=== PATIENT | female | born 1970 | race Two or more races ===

== ENCOUNTER 2016-06-09 18:03 | Emergency (ER) | payer MEDICAID ==
[2016-06-09] MEDS ORDERED: ALBUTEROL NEB 2.5 MG/3 ML INH STA (18:32)
[2016-06-09] MEDS ORDERED: ALBUTEROL NEB 2.5 MG/3 ML INH ONE (19:15)
== END 2016-06-09 19:33 | disposition home or self-care (01) ==
DX: O99.519 Diseases of the respiratory system complicating pregnancy, unspecified trimester (principal); J06.9 Acute upper respiratory infection, unspecified; B97.89 Other viral agents as the cause of diseases classified elsewhere; O99.330 Smoking (tobacco) complicating pregnancy, unspecified trimester; Z3A.00 Weeks of gestation of pregnancy not specified
CPT/HCPCS: 71020; 87275; 87276; 94640; 94664; 99283; 99284; J7613

== ENCOUNTER 2019-11-18 17:45 | Emergency (ER) | payer MEDICAID ==
--- NOTE | 2019-11-18 18:24 | ED Physician Documentation ---
History of Present Illness - Stated complaint Stated Complaint: LT THUMB PX - Chief complaint Chief Complaint: General - History obtained from History obtained from: Patient - History of Present Illness Timing: Prior to arrival, How many weeks ago (3) - Additonal information Additional information: 49-year-old female presents the emergency department with chief complaint of left thumb pain for nearly 3 weeks. She reports that she has had a sharp stabbing pain for the entire left thumb that radiates down into the wrist for about 3 weeks she denies any trauma until yesterday when she jammed her left thumb while making a bed. she has had a persistent clicking in the joint and thumb sometimes locks on her. No history of previous injury she has never had h and surgery. Patient is right-hand dominant. 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: Ovarian cysts - Past Surgical History Past Surgical History: Yes /STAFF RADIOGRAPHER: section - Present Medications Home Medications: Ambulatory Orders Medication Instructions Recorded Confirmed Albuterol Sulf [Ventolin Hfa 2 puffs INH Q4HR PRN #1 inhaler 06/09/16 Inhaler] Amitriptyline [Elavil] 1 tab PO DAILY 06/09/16 06/09/16 Benzonatate [Tessalon Perle] 100 mg PO TID PRN #20 capsule 06/09/16 Gabapentin 100 mg PO TID 06/09/16 06/09/16 - Allergies Allergies/Adverse Reactions: Allergies Allergy/AdvReac Type Severity Reaction Status Date / Time Penicillins AdvReac Nausea Verified 11/18/19 17:58 - Social History Does the pt smoke?: Yes Smoking Status: Current every day smoker Does the pt drink ETOH?: No Does the pt have substance abuse?: No - Immunizations Immunizations are current?: Yes PD ED PE NORMAL - General General: Alert and oriented X 3, No acute distress, Well developed/nourished - HEENT HEENT: Atraumatic - Extremities Extremities: No deformity, Other (Clicking and locking at the PIP of the left thumb. No snuffbox tenderness. Reduced range of motion. No swelling.) Results - Vitals Vitals: Vital Signs - 24 hr 11/18/19 17:58 Temperature 36.8 C Heart Rate 100 Respiratory 20 Rate Blood Pressure 151/100 H O2 Saturation 98 Oxygen O2 Source Room air - Rads (name of study) left hand Radiology: Final report received (No acute intraosseous abnormality. No fracture or dislocation) PD MEDICAL DECISION MAKING - ED course Complexity details: reviewed results, re-evaluated patient, d/w patient ED course: 49-year-old female presented to the emergency department with chief complaint of left thumb pain for nearly 2 weeks. Worse after jamming it yesterday. She often notes that she has a clicking sensation in the PIP of the thumb and it will often remain in the locked position. - X-rays negative for acute fracture dislocation. - Given that the thumb often clicks and locks in place at the PIP I am very suspicious for Trigger thumb. - X-ray is not consistent with ulnar collateral ligament rupture. Doubt gamekeeper's thumb. She has no swelling or erythema therefore I doubt an infectious etiology. - Patient was given a splint to help immobilize the thumb which has reduce the pain. - Recommend close follow-up with hand surgery for evaluation of trigger thumb.Emergent return precautions discussed Departure - Departure Disposition: 01 Home, Self Care Clinical Impression: Thumb pain Qualifiers: Laterality: left Qualified Code(s): M79.645 - Pain in left finger(s) Condition: Stable Instructions: Trigger Finger Comments: uRth I hope that your thumb feels better soon. Based on your exam I suspect that you have a trigger thumb. Often this needs to be seen in conjunction with a hand specialist who may recommend surgery to treat the tendon that is affected The x-ray of your hand was normal today. Continue to wear the splint as needed for comfort. If you have worsening pain fevers thumb redness or red streaking return to the emergency department.
--- NOTE | 2019-11-18 19:20 | XRAY Report ---
PROCEDURE: Hand 3 View LT INDICATIONS: left thumb pain TECHNIQUE: 3 views of the hand(s) acquired. COMPARISON: None FINDINGS: Bones: No fractures or dislocations. No suspicious bony lesions. Soft tissues: No suspicious soft tissue calcifications. IMPRESSION: No fractures. Reviewed by: Tanya Zhang MD on 11/18/2019 7:19 PM PDT Approved by: Tanya Zhang MD on 11/18/2019 7:19 PM PDT Station ID: [id number]
[2019-11-18 20:02] VITALS: BP 131/99
== END 2019-11-18 20:06 | disposition home or self-care (01) ==
LOC: ED 17:45
DX: M79.645 Pain in left finger(s) (principal); I10 Essential (primary) hypertension; F17.200 Nicotine dependence, unspecified, uncomplicated
CPT/HCPCS: 99283

== ENCOUNTER 2020-12-13 20:04 | Inpatient (IN) | payer MEDICAID ==
[2020-12-13] MEDS ORDERED: HYDROmorphone 1 MG/ML CARPUJECT IVP STA (20:43)
[2020-12-13] MEDS ORDERED: VANCOMYCIN INJ 2 GM in SODIUM CHLORIDE 0.9% 500 ML IV STA (20:43)
[2020-12-13] MEDS ORDERED: CLINDAMYCIN 900 MG/50 ML 50 ML IV ONE (20:43)
--- NOTE | 2020-12-13 20:43 | ED Physician Documentation ---
History of Present Illness - Stated complaint Stated Complaint: RT REED RASH /CHILLS - Chief complaint Chief Complaint: Ext Problem - History obtained from History obtained from: Patient - History of Present Illness Timing: How many days ago (3) Pain level max: 10 Pain level now: 10 - Additonal information Additional information: Patient is a 50-year-old female who presents to the emergency department with redness, swelling and pain to the right lower leg for the past 3 days. Fevers of 102 at home. Body aches and chills. Nothing makes it better or worse. She states that she attempted to drain the redness with a needle at home. Nothing came out. Has a history of rheumatoid arthritis. 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: section - Present Medications Home Medications: Ambulatory Orders Medication Instructions Recorded Confirmed Albuterol Sulf [Ventolin Hfa 2 puffs INH Q4HR PRN #1 inhaler 06/09/16 Inhaler] Amitriptyline [Elavil] 1 tab PO DAILY 06/09/16 06/09/16 Benzonatate [Tessalon Perle] 100 mg PO TID PRN #20 capsule 06/09/16 Gabapentin 100 mg PO TID 06/09/16 06/09/16 - Allergies Allergies/Adverse Reactions: Allergies Allergy/AdvReac Type Severity Reaction Status Date / Time Penicillins AdvReac Nausea Verified 12/13/20 20:06 - Social History Does the pt smoke?: Yes Smoking Status: Current every day smoker Does the pt drink ETOH?: No Does the pt have substance abuse?: No - Immunizations Immunizations are current?: Yes - POLST Patient has POLST: No PD ED PE NORMAL - Vitals Vital signs reviewed: Yes - General General: Alert and oriented X 3, No acute distress, Well developed/nourished, Other (Morbidly obese female) - HEENT HEENT: Moist mucous membranes, Pharynx benign - Neck Neck: Supple, no meningeal sign - Cardiac Cardiac: RRR, Strong equal pulses - Respiratory Respiratory: No respiratory distress, Clear bilaterally - Abdomen Abdomen: Soft, Non tender, Non distended - Derm Derm: Warm and dry - Extremities Extremities: Other (Diffuse erythema from the knee down to the ankle on the right lower extremity, anterior aspect of the calf. The area is approximately 12 x 18 cm. No fluctuance. No drainable abscess) - Neuro Neuro: Alert and oriented X 3 Results - Vitals Vitals: Vital Signs - 24 hr 12/13/20 20:06 Temperature 37.6 C Heart Rate 122 H Respiratory 18 Rate Blood Pressure 149/91 H O2 Saturation 98 Oxygen O2 Source Room air - Labs Labs: Laboratory Tests 12/13/20 12/13/20 12/13/20 20:51 20:51 20:51 WBC 22.9 H RBC 4.48 Hgb 12.7 Hct 37.2 MCV 83.0 MCH 28.3 MCHC 34.1 RDW 12.4 Plt Count 407 MPV 9.8 Neut # (Auto) 18.6 H Lymph # (Auto) 1.8 [place]iscoe # (Auto) 2.2 H Eos # (Auto) 0.1 Baso # (Auto) 0.1 Absolute Nucleated RBC 0.00 Band Neuts % (Manual) Not Reportable Abnorm Lymph % (Manual) Not Reportable Nucleated RBC % 0.0 Neutrophils # (Manual) Not Reportable Lymphocytes # (Manual) Not Reportable Monocytes # (Manual) Not Reportable Eosinophils # (Manual) Not Reportable Basophils # (Manual) Not Reportable Differential Comment MANUAL=AUTO DIFF Manual Slide Review Indicated WBC Morphology NORMAL APPEARANCE Platelet Estimate NORMAL (130-450,000) Platelet Morphology NORMAL APPEARANCE RBC Morph Micro Appear NORMAL APPEARANCE PT 14.8 H INR 1.4 H APTT 27.0 Sodium 134 L Potassium 3.7 Chloride 97 L Carbon Dioxide 25 Anion Gap 12.0 BUN 10 Creatinine 0.5 Estimated GFR (MDRD) 131 Glucose 113 H Lactic Acid Calcium 8.9 Total Bilirubin 0.8 AST 24 ALT 51 Alkaline Phosphatase 130 H Total Protein 7.6 Albumin 3.2 Globulin 4.4 H Albumin/Globulin Ratio 0.7 L Lipase 17 L Urine Color Urine Clarity Urine pH Ur Specific [place] Urine Protein Urine Glucose (UA) Urine Ketones Urine Occult Blood Urine Nitrite Urine Bilirubin Urine Urobilinogen Ur Leukocyte Esterase Urine RBC Urine WBC Ur Squamous Epith Cells Urine Bacteria Ur Microscopic Review Urine Culture Comments 12/13/20 12/13/20 20:51 21:21 WBC RBC Hgb Hct MCV MCH MCHC RDW Plt Count MPV Neut # (Auto) Lymph # (Auto) [place] # (Auto) Eos # (Auto) Baso # (Auto) Absolute Nucleated RBC Band Neuts % (Manual) Abnorm Lymph % (Manual) Nucleated RBC % Neutrophils # (Manual) Lymphocytes # (Manual) Monocytes # (Manual) Eosinophils # (Manual) Basophils # (Manual) Differential Comment Manual Slide Review WBC Morphology Platelet Estimate Platelet Morphology RBC Morph Micro Appear PT INR APTT Sodium Potassium Chloride Carbon Dioxide Anion Gap BUN Creatinine Estimated GFR (MDRD) Glucose Lactic Acid 0.9 Calcium Total Bilirubin AST ALT Alkaline Phosphatase Total Protein Albumin Globulin Albumin/Globulin Ratio Lipase Urine Color YELLOW Urine Clarity SL. CLOUDY Urine pH 7.0 Ur Specific [place] 1.015 Urine Protein NEGATIVE Urine Glucose (UA) NEGATIVE Urine Ketones >=80 H Urine Occult Blood TRACE-INTA Urine Nitrite POSITIVE H Urine Bilirubin NEGATIVE Urine Urobilinogen 4 H Ur Leukocyte Esterase NEGATIVE Urine RBC 0-5 Urine WBC 4-5 Ur Squamous Epith Cells FEW Squamous Urine Bacteria Many H Ur Microscopic Review INDICATED Urine Culture Comments INDICATED PD MEDICAL DECISION MAKING - ED course Complexity details: reviewed results, re-evaluated patient, considered differential, d/w patient, d/w center lead consultant ED course: Patient with significant cellulitis of the right lower extremity. Fever at home. Chills, tachycardia. Consistent with SIRS. Given IV fluids and IV antibiotics. Blood cultures drawn. We will admit for IV antibiotics. Discussed the case with Dr. Wheeler, hospitalist who accepts This document was made in part using voice recognition software. While efforts are made to proofread this document, sound alike and grammatical errors may occur. Departure - Departure Disposition: ED Place in Observation Clinical Impression: SIRS (systemic inflammatory response syndrome) Cellulitis Qualifiers: Site of cellulitis: extremity Site of cellulitis of extremity: lower extremity Laterality: right Qualified Code(s): L03.115 - Cellulitis of right lower limb Condition: Stable
[2020-12-13 20:56] LABS: BASOPHILS # (AUTO) 0.1 10^3/uL (0.0-0.1); BASOPHILS % (AUTO) 0.3 %; EOSINOPHILS # (AUTO) 0.1 10^3/uL (0.0-0.7); EOSINOPHILS % (AUTO) 0.2 %; HCT - HEMATOCRIT 37.2 % (37.0-47.0); HGB - HEMOGLOBIN 12.7 g/dL (12.0-16.0); LYMPHOCYTES # (AUTO) 1.8 10^3/uL (1.5-3.5); LYMPHOCYTES % (AUTO) 7.9 %; MEAN CORPUSCULAR HEMOGLOBIN 28.3 pg (27.0-31.0); MEAN CORPUSCULAR HGB CONC 34.1 g/dL (32.0-36.0); MEAN PLATELET VOLUME 9.8 fL (7.9-10.8); MONOCYTES # (AUTO) 2.2 10^3/uL (0.0-1.0); MONOCYTES % (AUTO) 9.8 %; NEUTROPHILS # (AUTO) 18.6 10^3/uL (1.5-6.6); NEUTROPHILS % (AUTO) 81.1 %; PLT - PLATELET COUNT 407 10^3/uL (130-450); RED BLOOD COUNT 4.48 10^6/uL (4.20-5.40); RED CELL DISTRIBUTION WIDTH 12.4 % (12.0-15.0); WHITE BLOOD COUNT 22.9 x10^3/uL (4.8-10.8)
[2020-12-13] MEDS ORDERED: SODIUM CHLORIDE 0.9% 1,000 ML IV STA ×2 (20:57)
[2020-12-13 20:59] LABS: SLIDE REVIEW? Indicated
[2020-12-13 21:05] LABS: INR 1.4 (0.8-1.2); PT - PROTHROMBIN TIME 14.8 secs (9.9-12.6)
[2020-12-13 21:10] LABS: ALBUMIN 3.2 g/dL (3.2-5.5); ALBUMIN/GLOBULIN RATIO 0.7 (1.0-2.2); BILIRUBIN,TOTAL 0.8 mg/dL (0.2-1.0); CALCIUM 8.9 mg/dL (8.5-10.3); CREATININE 0.5 mg/dL (0.4-1.0); POTASSIUM 3.7 mmol/L (3.5-5.0); TOTAL PROTEIN 7.6 g/dL (6.7-8.2)
[2020-12-13] MEDS ORDERED: VANCOMYCIN 1 GM VIAL ONE (21:15)
[2020-12-13 21:23] LABS: PLATELET ESTIMATE, MANUAL NORMAL (130-450,000) (NORMAL); PLATELET MORPHOLOGY NORMAL APPEARANCE (NORMAL); RBC MORPHOLOGY (MULTIPLE) NORMAL APPEARANCE (NORMAL); WBC MORPHOLOGY (MULTIPLE) NORMAL APPEARANCE (NORMAL)
[2020-12-13 21:24] LABS: DIFFERENTIAL COMMENT MANUAL=AUTO DIFF
[2020-12-13] MEDS ORDERED: ONDANSETRON ODT 4 MG TABLET TL PRN (21:39)
[2020-12-13 21:43] LABS: BILIRUBIN,URINE NEGATIVE (NEGATIVE); GLUCOSE, URINE (UA) NEGATIVE (NEGATIVE); KETONES,URINE (UA) >=80 mg/dL (NEGATIVE); LEUKOCYTE ESTERASE, URINE NEGATIVE (NEGATIVE); NITRITE,URINE POSITIVE (NEGATIVE); OCCULT BLOOD,URINE TRACE-INTA (NEGATIVE); PROTEIN,URINE NEGATIVE (NEGATIVE); UROBILINOGEN,URINE 4 E.U./dL (NORMAL)
[2020-12-13 21:44] LABS: CLARITY,URINE SL. CLOUDY (CLEAR)
[2020-12-13 21:50] LABS: BACTERIA,URINE Many /HPF (None Seen); RBC,URINE 0-5 /HPF (0-5); SQUAMOUS EPITHELIAL CELL,UR FEW Squamous (<= Few)
[2020-12-13 23:01] LABS: B. PARAPERTUSSIS- RESP PCR PAN NOT DETECTED; B. PERTUSSIS- RESP PCR PANEL NOT DETECTED; C. PNEUMONIAE- RESP PCR PANEL NOT DETECTED; CORONAVIRUS 229E-RESP PCR NOT DETECTED; CORONAVIRUS HKU1-RESP PCR NOT DETECTED; CORONAVIRUS NL63-RESP PCR NOT DETECTED; CORONAVIRUS OC43-RESP PCR NOT DETECTED; HUMAN METAPNEUMOVIRUS NOT DETECTED; INFLUENZA A- RESP PCR PANEL NOT DETECTED; INFLUENZA B - RESP PCR PANEL NOT DETECTED; M. PNEUMONIAE- RESP PCR PANEL NOT DETECTED; PARAINFLUENZA VIRUS 1 NOT DETECTED; PARAINFLUENZA VIRUS 2 NOT DETECTED; PARAINFLUENZA VIRUS 3 NOT DETECTED; PARAINFLUENZA VIRUS 4 NOT DETECTED; RHINOVIRUS/ENTEROVIRUS NOT DETECTED; RSV- RESP PCR PANEL NOT DETECTED; SARS-CoV-2 -RESP PCR PANEL NOT DETECTED
--- NOTE | 2020-12-13 23:23 | HISTORY & PHYSICAL EXAMINATION ---
Chief Complaint - Chief Complaint Chief Complaint: Right leg pain, redness, and swelling History of Present Illness - Admitted From Admitted From:: ED - History Obtained From Records Reviewed: ED History obtained from: Patient Exam Limitations: None - History of Present Illness HPI Comment/Other: Patient is a 50-year-old female with a past medical history of fibromyalgia, spinal stenosis, DJD of the spine, and early signs of rheumatoid arthritis who presents the emergency department with 4-day history of right leg redness, swelling, pain.She states that she was [place] [facility] a few days ago, and about 1 day after being [place] [facility] after standing in the water she noticed some swelling and a pustule on the anterior aspect of her right lower leg. Swelling worsened rather quickly and has been relatively stable for the past 2 days but the pain has been getting worse. Not relieved with anything other than mild improvement with elevation. In the ED she had tachycardia, mildly soft BP, and leukocytosis of 22.9. Hospital medicine was consulted for IV abx to treat cellulitis. 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 - Substance History Use: Uses substance without health or social issues: NONE Abuse: Recurrent use of substance despite neg consequences: NONE Dependence: Experiences withdrawal or developed tolerances: NONE - POLST Patient has POLST: No Meds/Allgy - Home Medications Home Medications: Ambulatory Orders Medication Instructions Recorded Confirmed Albuterol Sulf [Ventolin Hfa 2 puffs INH Q4HR PRN #1 inhaler 06/09/16 Inhaler] Amitriptyline [Elavil] 1 tab PO DAILY 06/09/16 06/09/16 Benzonatate [Tessalon Perle] 100 mg PO TID PRN #20 capsule 06/09/16 Gabapentin 100 mg PO TID 06/09/16 06/09/16 - Allergies Allergies/Adverse Reactions: Allergies Allergy/AdvReac Type Severity Reaction Status Date / Time Penicillins AdvReac Nausea Verified 12/13/20 20:06 Review of Systems - Constitutional Constitutional: reports: Fever, Chills - Cardiovascular Cariovascular: denies: Irregular heart rate, Chest pain - Gastrointestinal Gastrointestinal: denies: Change in bowel habits, Nausea, Vomiting - Musculoskeletal Musculoskeletal: reports: Back pain, Joint pain - All Other Systems All Other Systems: reports: Reviewed and negative Prior Level of Functionality: . Taking time off work to spend time with her kids Exam - Vital Signs Reviewed Vital Signs: Yes Vital Signs: Vital Signs x48h Temp Pulse Pulse Resp BP BP Pulse Ox 12/13/20 23:05 37.3 C 12/13/20 22:34 112 H 16 149/66 H 98 12/13/20 20:06 37.6 C 122 H 18 149/91 H 98 - Physical Exam General Appearance: positive: No acute distress Eyes Bilateral: positive: Normal inspection ENT: positive: ENT inspection nml Neck: positive: Nml inspection Respiratory: positive: Chest non-tender, No respiratory distress Cardiovascular: positive: Regular rate & rhythm, No murmur, No gallop Peripheral Pulses: positive: 2+ Abdomen: positive: Non-tender, No organomegaly, Nml bowel sounds, No distention Rectal: positive: Non-tender Back: positive: Nml inspection Skin: positive: Other (Right lower leg, anterior aspect, remarkable for erythema with small tiny single pustule. There is a convex city deformity to the anterior aspect of the lower leg that the patient states is chronic and not related to the current infection.) Extremities: positive: Other (See above, redness, warmth to touch, tenderness to palpation of the right lower leg) Neurologic/Psychiatric: positive: Oriented x3 Sepsis Event Note (H) - Evaluation Current Stage of Sepsis: Ruled out Conclusion/Plan - Problem List (1) Cellulitis Conclusion/Plan: Right lower leg cellulitis probably anaerobic given exposure to [facility] [place] recently Continue clindamycin and vancomycin started in ED Check MRSA nasal swab and potentially discontinue vancomycin if improved tomorrow and swab is negative Possible DC on oral antibiotics in 1 to 2 days pending clinical course Qualifiers: Site of cellulitis: extremity Site of cellulitis of extremity: lower extr emity Laterality: right Qualified Code(s): L03.115 - Cellulitis of right lower limb (2) Fibromyalgia Conclusion/Plan: Resume home medications (3) Hypertension Conclusion/Plan: Resume home medications (4) SIRS (systemic inflammatory response syndrome) Conclusion/Plan: Mild tachycardia persists but blood pressure has recovered and lactic acid is negative. Continue antibiotic treatment as above - Lab Results Lab results reviewed: Yes Bayron Bones: 12/13/20 20:51 12/13/20 20:51 Core Measures - Anticipated LOS I expect patient to be DC'd or transferred within 96 hours.: Yes - DVT/VTE - Prophylaxis VTE/DVT Device ordered at admit?: Yes
[2020-12-13] MEDS: oxyCODONE 5 MG TABLET PO PRN (23:27)
[2020-12-13] MEDS: ACETAMINOPHEN 325 MG TABLET PO PRN (23:27)
[2020-12-13] MEDS ORDERED: GABAPENTIN 100 MG CAPSULE PO SCH (23:45)
[2020-12-13] MEDS: SODIUM CHLORIDE 0.9% 1,000 ML IV SCH (23:47)
[2020-12-13] MEDS: SODIUM CHLORIDE FLUSH 0.9% 10 ML SYRINGE IVP SCH (23:50)
[2020-12-14] MEDS: IBUPROFEN 600 MG TABLET PO PRN ×3 (03:42→15:31)
[2020-12-14] MEDS: oxyCODONE 5 MG TABLET PO PRN ×5 (03:42→21:17)
[2020-12-14 05:32] LABS: MEAN CORPUSCULAR HEMOGLOBIN 27.5 pg (27.0-31.0); MEAN CORPUSCULAR HGB CONC 32.4 g/dL (32.0-36.0); MEAN CORPUSCULAR VOLUME 84.7 fL (81.0-99.0); MEAN PLATELET VOLUME 10.1 fL (7.9-10.8); RED BLOOD COUNT 4.37 10^6/uL (4.20-5.40); RED CELL DISTRIBUTION WIDTH 12.7 % (12.0-15.0); WHITE BLOOD COUNT 23.2 x10^3/uL (4.8-10.8)
[2020-12-14 05:43] LABS: CALCIUM 8.6 mg/dL (8.5-10.3); CREATININE 0.4 mg/dL (0.4-1.0); POTASSIUM 3.3 mmol/L (3.5-5.0)
[2020-12-14] MEDS: CLINDAMYCIN 600 MG/50 ML 50 ML IV SCH ×3 (05:52→23:19)
[2020-12-14] MEDS: SODIUM CHLORIDE 0.9% 1,000 ML IV SCH ×3 (06:01→18:08)
[2020-12-14] MEDS: ACETAMINOPHEN 325 MG TABLET PO PRN ×3 (08:05→17:06)
[2020-12-14] MEDS: GABAPENTIN 100 MG CAPSULE PO SCH ×2 (08:05→15:54)
[2020-12-14] MEDS: ENOXAPARIN 40 MG/0.4 ML SYRINGE SUBQ SCH (08:08)
[2020-12-14] MEDS ORDERED: POTASSIUM CHLORIDE 20 MEQ TABLET PO ONE (08:15)
[2020-12-14] MEDS ORDERED: AMITRIPTYLINE 10 MG TABLET PO SCH (09:00)
[2020-12-14] MEDS: SACCHAROMYCES BOULARDII 250 MG CAPSULE PO SCH ×2 (09:37→17:05)
[2020-12-14] MEDS: VANCOMYCIN INJ 1 GM, VANCOMYCIN INJ 500 MG in SODIUM CHLORIDE 0.9% 500 ML IV SCH ×2 (09:38→21:14)
[2020-12-14] MEDS: SODIUM CHLORIDE FLUSH 0.9% 10 ML SYRINGE IVP SCH ×2 (09:43→17:05)
[2020-12-14] MEDS ORDERED: IOVERSOL 320 100 ML VIAL IVP ONE ×2 (10:51→16:27)
[2020-12-14 12:21] LABS: HCG,QUALITATIVE BLOOD NEGATIVE
--- NOTE | 2020-12-14 12:51 | PHARMACY PROGRESS NOTE ---
- Best Possible Medication History Admit Date and Time: 12/13/208 Processed by: Pharmacy Medication History completed: Yes Patient Interview: Completed Secondary Source(s): Pharmacy records, Insurance records As the person ultimately responsible for medication therapy, providers are able to order a medication from an existing home medication list in [facility] via the "Reconcile Routine" prior to Confirmation of that medication by shipping support. Such practice is discouraged except when the physician, in their clinical judgment, deems that a medical need exists for a medication without regard to previous use.
--- NOTE | 2020-12-14 14:31 | PHARMACY PROGRESS NOTE ---
- Therapy Status Vancomycin regimen day #: 2 Therapy status: Awaiting steady state Basis for treatment: Empirical Treatment indication: Cellulitis Trough goal: 15-20 Concurrent antibiotics: Clindamycin - DANNA Risk Risk level for Acute Kidney Injury: Moderate Acute Kidney Injury risk factors: Wt >100kg or BMI >40, IV contrast within 72 hrs, Goal trough >15 - Monitoring and Recommendation Clinical response to treatment: I&O Previous 24 hours 12/12/20 12/13/20 12/14/20 23:59 23:59 23:59 Intake Total 1415 3775 Output Total 850 Balance 1415 2925 Lab Results 12/14/20 12/13/20 05:00 20:51 BUN 10 10 Creatinine 0.4 0.5 Estimated GFR (MDRD) 169 131 Cultures 12/14/20 08:15 Leg - Right Wound Culture - Preliminary 12/13/20 21:21 Urine,Clean Catch Urine Culture - Preliminary Monitoring plan: Daily serum creatinine, Suggest ongoing fluid replacement Next trough due prior to maintenance dose #: 5 Next trough due (date/time): 12/16/20 0830 Areas for additional monitoring: IV to PO when appropriate, Therapy de- escalation based on culture results, Acute Kidney Injury Pharmacy recommendation: Continue current regime
--- NOTE | 2020-12-14 16:15 | CT Report ---
PROCEDURE: LOWER EXTREMITY W - RT INDICATIONS: leg pain, abscess TECHNIQUE: CT of the right lower leg obtained in axial plane with coronal and sagittal reformatted. COMPARISON: None. FINDINGS: Bones: No fracture or dislocation. No bony erosion or periosteal reaction. Soft tissues: There is a complex subcutaneous fluid collection in the anterior medial mass effect of the right lower leg measuring 6.7 cm AP, 8.4 cm transverse and 6.4 cm cephalocaudal. There is subtle peripheral enhancement along the fluid collection, suspicious for abscess. There is soft tissue attending and skin thickening in the right lower leg consistent with cellulitis. IMPRESSION: 1. A 6.7 x 8.4 x 6.9 cm subcutaneous fluid collection in the anterior aspect of the right lower leg d emonstrates subtle peripheral enhancement, compatible with an abscess. 2. Soft tissue stranding and skin thickening of the right lower leg consistent with cellulitis. Reviewed by: Reed Dent MD on 12/14/2020 4:13 PM PDT Approved by: Reed Dent MD on 12/14/2020 4:13 PM PDT Station ID: [id number]
--- NOTE | 2020-12-14 16:52 | PROVIDER PROGRESS NOTE ---
Assessment/Plan - Problem List (1) Abscess Assessment/Plan: CT reveals big size of abscess on the frontier of right lower extremity. Consult with the surgeon, n.p.o. after midnight, plan to have I/D on tomorrow morning. Continue antibiotics, intravenous IV fluids, pain control (2) Cellulitis Improved significantly, Erythema is reduced, patient reported pain is better Controlled. But the WBC has slightly elevated. We will continue antibiotics,Follow-up blood culture and wound culture. (3) Fibromyalgia Conclusion/Plan: stable, Resume home medications (4) Hypertension Conclusion/Plan: stable, Resume home medications, HCTZ (5) SIRS (systemic inflammatory response syndrome) Conclusion/Plan: improved. Tachycardia is resolved. blood pressure is good control and lactic acid is negative. Continue antibiotic treatment And intravenous IV fluids - Current Meds Current Meds: Current Medications Generic Name Dose Route Start Last Admin Trade Name Freq PRN Reason Stop Dose Admin Acetaminophen 650 mg 12/13/20 21:39 12/14/20 12:31 Acetaminophen 325 Mg Tablet PO 650 mg Q4HR PRN Administration Pain 1 to 4 Enoxaparin Sodium 40 mg 12/14/20 09:00 12/14/20 08:08 Enoxaparin 40 Mg/0.4 Ml Syringe SUBQ 40 mg DAILY DANISH Administration Gabapentin 100 mg 12/14/20 08:30 12/14/20 15:54 Gabapentin 100 Mg Capsule PO 100 mg Q8H DANISH Administration Clindamycin Phosphate 50 mls @ 100 mls/hr 12/14/20 06:00 12/14/20 15:20 Cleocin 600 Mg/50 Ml IV Infused Q8HR DANISH Infusion Vancomycin HCl 1 gm/ 500 mls @ 250 mls/hr 12/14/20 09:00 12/14/20 11:10 Vancomycin HCl 500 mg/ Sodium IV Infused Chloride Q12H DANISH Infusion Sodium Chloride 1,000 mls @ 100 mls/hr 12/14/20 08:15 12/14/20 09:37 Normal Saline 0.9% IV 12/15/20 04:14 100 mls/hr .Q10H DANISH Administration Ibuprofen 600 mg 12/13/20 21:39 12/14/20 15:31 Ibuprofen 600 Mg Tablet PO 600 mg Q6HR PRN Administration Pain 1 to 4 Oxycodone HCl 5 mg 12/13/20 21:39 12/14/20 12:26 Oxycodone 5 Mg Tablet PO 5 mg Q4HR PRN Administration Pain 5 to 7 Saccharomyces Boulardii 500 mg 12/14/20 08:24 12/14/20 09:37 Saccharomyces Boulardii 250 Mg Capsule PO 500 mg BIDWM DANISH Administration Sodium Chloride 10 ml 12/14/20 01:00 12/14/20 09:43 Sodium Chloride Flush 0.9% 10 Ml Syringe IVP Not Given 0100,0900,1700 DANISH - Lab Result Fish Bone Diagrams: 12/14/20 05:00 12/14/20 05:00 - Additional Planning My Orders: My Active Orders 12/14/20 08:15 Sodium Chloride 0.9% [Normal Saline 0.9%] 1,000 ml IV 100 mls/hr 12/14/20 08:24 Saccharomyces Boulardii [Florastor] 500 mg PO BIDWM 12/15/20 00:01 NPO except Meds [DIET] Subjective - Subjective Patient Reports: Feeling Better Objective Vital Signs: Vital Signs - 24 hr 12/13/20 12/13/20 12/13/20 20:06 22:34 23:05 Temperature 37.6 C 37.3 C Heart Rate 122 H Heart Rate [ 112 H Brachial] Respiratory 18 16 Rate Blood Pressure 149/91 H Blood Pressure 149/66 H [Left Brachial artery] O2 Saturation 98 98 12/13/20 12/14/20 12/14/20 23:49 05:05 07:48 Temperature 37.5 C 36.8 C 36.6 C Heart Rate Heart Rate [ 112 H 92 89 Brachial] Respiratory 18 18 16 Rate Blood Pressure Blood Pressure 145/88 H 138/75 H 125/68 [Left Brachial artery] O2 Saturation 100 97 98 12/14/20 12/14/20 12:13 16:16 Temperature 36.6 C 36.5 C Heart Rate Heart Rate [ 94 95 Brachial] Respiratory 18 16 Rate Blood Pressure Blood Pressure 135/65 H 146/73 H [Left Brachial artery] O2 Saturation 99 99 Oxygen O2 Source Room air I&O (Last 24 Hrs): Intake and Output Totals x24h 12/12/20 12/13/20 12/14/20 23:59 23:59 23:59 Intake Total 1415 3825 Output Total 850 Balance 1415 2975 General: Alert, Oriented x3, Cooperative, No acute distress HEENT: Atraumatic, PERRLA Neck: Supple Lymphatic: no adenopathy Neuro: Alert, Non Focal, Oriented Times 3 Cardiovascular: Regular rate, Normal S1, Normal S2 Respiratory: Chest non-tender, No respiratory distress Abdomen: Normal bowel sounds, Soft, No tenderness Extremities: Normal pulses Comments/Notes: Erythema and warmth at right lower extremity, pt has drainage site on the frontier of right lower extremity where show tenderness, possible abscess at there. - Results Results: Laboratory Results WBC 23.2 x10^3/uL (4.8-10.8) H 12/14/20 05:00 RBC 4.37 10^6/uL (4.20-5.40) 12/14/20 05:00 Hgb 12.0 g/dL (12.0-16.0) 12/14/20 05:00 Hct 37.0 % (37.0-47.0) 12/14/20 05:00 MCV 84.7 fL (81.0-99.0) 12/14/20 05:00 MCH 27.5 pg (27.0-31.0) 12/14/20 05:00 MCHC 32.4 g/dL (32.0-36.0) 12/14/20 05:00 RDW 12.7 % (12.0-15.0) 12/14/20 05:00 Plt Count 409 10^3/uL (130-450) 12/14/20 05:00 MPV 10.1 fL (7.9-10.8) 12/14/20 05:00 Neut # (Auto) 18.6 10^3/uL (1.5-6.6) H 12/13/20 20:51 Lymph # (Auto) 1.8 10^3/uL (1.5-3.5) 12/13/20 20:51 [place] # (Auto) 2.2 10^3/uL (0.0-1.0) H 12/13/20 20:51 Eos # (Auto) 0.1 10^3/uL (0.0-0.7) 12/13/20 20:51 Baso # (Auto) 0.1 10^3/uL (0.0-0.1) 12/13/20 20:51 Absolute Nucleated RBC 0.00 x10^3/uL 12/13/20 20:51 Band Neuts % (Manual) Not Reportable 12/13/20 20:51 Abnorm Lymph % (Manual) Not Reportable 12/13/20 20:51 Nucleated RBC % 0.0 /100WBC 12/13/20 20:51 Neutrophils # (Manual) Not Reportable 12/13/20 20:51 Lymphocytes # (Manual) Not Reportable 12/13/20 20:51 Monocytes # (Manual) Not Reportable 12/13/20 20:51 Eosinophils # (Manual) Not Reportable 12/13/20 20:51 Basophils # (Manual) Not Reportable 12/13/20 20:51 Differential Comment MANUAL=AUTO DIFF 12/13/20 20:51 Manual Slide Review Indicated 12/13/20 20:51 WBC Morphology NORMAL APPEARANCE (NORMAL) 12/13/20 20:51 Platelet Estimate NORMAL (130-450,000) (NORMAL) 12/13/20 20:51 Platelet Morphology NORMAL APPEARANCE (NORMAL) 12/13/20 20:51 RBC Morph Micro Appear NORMAL APPEARANCE (NORMAL) 12/13/20 20:51 PT 14.8 secs (9.9-12.6) H 12/13/20 20:51 INR 1.4 (0.8-1.2) H 12/13/20 20:51 APTT 27.0 secs (24.9-33.3) 12/13/20 20:51 Sodium 136 mmol/L (135-145) 12/14/20 05:00 Potassium 3.3 mmol/L (3.5-5.0) L 12/14/20 05:00 Chloride 101 mmol/L (101-111) 12/14/20 05:00 Carbon Dioxide 27 mmol/L (21-32) 12/14/20 05:00 Anion Gap 8.0 (6-13) 12/14/20 05:00 BUN 10 mg/dL (6-20) 12/14/20 05:00 Creatinine 0.4 mg/dL (0.4-1.0) 12/14/20 05:00 Estimated GFR (MDRD) 169 (>89) 12/14/20 05:00 Glucose 111 mg/dL (70-100) H 12/14/20 05:00 Lactic Acid 0.9 mmol/L (0.5-2.2) 12/13/20 20:51 Calcium 8.6 mg/dL (8.5-10.3) 12/14/20 05:00 Total Bilirubin 0.8 mg/dL (0.2-1.0) 12/13/20 20:51 AST 24 IU/L (10-42) 12/13/20 20:51 ALT 51 IU/L (10-60) 12/13/20 20:51 Alkaline Phosphatase 130 IU/L (42-121) H 12/13/20 20:51 Total Protein 7.6 g/dL (6.7-8.2) 12/13/20 20:51 Albumin 3.2 g/dL (3.2-5.5) 12/13/20 20:51 Globulin 4.4 g/dL (2.1-4.2) H 12/13/20 20:51 Albumin/Globulin Ratio 0.7 (1.0-2.2) L 12/13/20 20:51 Lipase 17 U/L (22-51) L 12/13/20 20:51 Serum HCG, Qual NEGATIVE 12/14/20 11:45 Urine Color YELLOW 12/13/20 21:21 Urine Clarity SL. CLOUDY (CLEAR) 12/13/20 21:21 Urine pH 7.0 PH (5.0-7.5) 12/13/20 21:21 Ur Specific [place] 1.015 (1.002-1.030) 12/13/20 21:21 Urine Protein NEGATIVE mg/dL (NEGATIVE) 12/13/20 21:21 Urine Glucose (UA) NEGATIVE mg/dL (NEGATIVE) 12/13/20 21:21 Urine Ketones >=80 mg/dL (NEGATIVE) H 12/13/20 21:21 Urine Occult Blood TRACE-INTA (NEGATIVE) 12/13/20 21:21 Urine Nitrite POSITIVE (NEGATIVE) H 12/13/20 21:21 Urine Bilirubin NEGATIVE (NEGATIVE) 12/13/20 21:21 Urine Urobilinogen 4 E.U./dL (NORMAL) H 12/13/20 21:21 Ur Leukocyte Esterase NEGATIVE (NEGATIVE) 12/13/20 21:21 Urine RBC 0-5 /HPF (0-5) 12/13/20 21:21 Urine WBC 4-5 /HPF (0-5) 12/13/20 21:21 Ur Squamous Epith Cells FEW Squamous (<= Few) 12/13/20 21:21 Urine Bacteria Many /HPF (None Seen) H 12/13/20 21:21 Ur Microscopic Review INDICATED 12/13/20 21:21 Urine Culture Comments INDICATED 12/13/20 21:21 Nasal Adenovirus (PCR) NOT DETECTED 12/13/20 21:45 Nasal B. parapertussis DNA (PCR) NOT DETECTED 12/13/20 21:45 Nasal Coronavir 229E PCR NOT DETECTED 12/13/20 21:45 Nasal Coronavir HKU1 PCR NOT DETECTED 12/13/20 21:45 Nasal Coronavir NL63 PCR NOT DETECTED 12/13/20 21:45 Nasal Coronavir OC43 PCR NOT DETECTED 12/13/20 21:45 Nasal Enterovir/Rhinovir PCR NOT DETECTED 12/13/20 21:45 Nasal Influenza B PCR NOT DETECTED 12/13/20 21:45 Nasal Influenza A PCR NOT DETECTED 12/13/20 21:45 Nasal Parainfluen 1 PCR NOT DETECTED 12/13/20 21:45 Nasal Parainfluen 2 PCR NOT DETECTED 12/13/20 21:45 Nasal Parainfluen 3 PCR NOT DETECTED 12/13/20 21:45 Nasal Parainfluen 4 PCR NOT DETECTED 12/13/20 21:45 Nasal RSV (PCR) NOT DETECTED 12/13/20 21:45 Nasal Screen MRSA (PCR) NEGATIVE (NEGATIVE) 12/13/20 22:00 Nasal B.pertussis DNA PCR NOT DETECTED 12/13/20 21:45 Nasal C.pneumoniae (PCR) NOT DETECTED 12/13/20 21:45 [place] Human Metapneumo PCR NOT DETECTED 12/13/20 21:45 Nasal M.pneumoniae (PCR) NOT DETECTED 12/13/20 21:45 Nasal SARS-CoV-2 (PCR) NOT DETECTED 12/13/20 21:45 Sepsis Event Note (H) - Evaluation Current Stage of Sepsis: Ruled out ABX Reporting Has patient been on IV antibiotics over the past 48 hours?: Yes Current Medications - Current Medications Current Medications: Active Medications Acetaminophen (Acetaminophen 325 Mg Tablet) 650 mg PO Q4HR PRN PRN Reason: Pain 1 to 4 Last Admin: 12/14/20 12:31 Dose: 650 mg Documented by: Amitriptyline HCl (Amitriptyline 25 Mg Tablet) 12.5 mg PO QPM [facility] Enoxaparin Sodium (Enoxaparin 40 Mg/0.4 Ml Syringe) 40 mg SUBQ DAILY [facility] Last Admin: 12/14/20 08:08 Dose: 40 mg Documented by: Gabapentin (Gabapentin 100 Mg Capsule) 100 mg PO Q8H [facility] Last Admin: 12/14/20 15:54 Dose: 100 mg Documented by: Hydrochlorothiazide (Hydrochlorothiazide 25 Mg Tablet) 25 mg PO DAILY [facility] Clindamycin Phosphate (Cleocin 600 Mg/50 Ml) 50 mls @ 100 mls/hr IV Q8HR [facility] Last Infusion: 12/14/20 15:20 Dose: Infused Documented by: Vancomycin HCl 1 gm/Vancomycin HCl 500 mg/ Sodium Chloride 500 mls @ 250 mls/hr IV Q12H [facility] Last Infusion: 12/14/20 11:10 Dose: Infused Documented by: Sodium Chloride (Normal Saline 0.9%) 1,000 mls @ 100 mls/hr IV .Q10H [facility] Stop: 12/15/20 04:14 Last Admin: 12/14/20 09:37 Dose: 100 mls/hr Documented by: Ibuprofen (Ibuprofen 600 Mg Tablet) 600 mg PO Q6HR PRN PRN Reason: Pain 1 to 4 Last Admin: 12/14/20 15:31 Dose: 600 mg Documented by: Methocarbamol (Methocarbamol 500 Mg Tablet) 500 mg PO Q6H PRN PRN Reason: Muscle Spasms Morphine Sulfate (Morphine 2 Mg/Ml Carpuject) 2 mg IVP Q2HR PRN PRN Reason: PAIN Non-Formulary Medication (Amitriptyline Hcl [Amitriptyline Hcl]) 100 mg PO QPM [facility] Non-Formulary Medication (Gabapentin [Neurontin]) 600 mg PO BID [facility] Non-Formulary Medication (Gabapentin [Neurontin]) 800 mg PO BID [facility] Ondansetron HCl (Ondansetron Odt 4 Mg Tablet) 4 mg TL Q6HR PRN PRN Reason: Nausea / Vomiting Oxycodone HCl (Oxycodone 5 Mg Tablet) 5 mg PO Q4HR PRN PRN Reason: Pain 5 to 7 Last Admin: 12/14/20 12:26 Dose: 5 mg Documented by: Saccharomyces Boulardii (Saccharomyces Boulardii 250 Mg Capsule) 500 mg PO BIDWM [facility] Last Admin: 12/14/20 09:37 Dose: 500 mg Documented by: Sodium Chloride (Sodium Chloride Flush 0.9% 10 Ml Syringe) 10 ml IVP PRN PRN PRN Reason: NEEDED PER PROVIDER ORDERS Sodium Chloride (Sodium Chloride Flush 0.9% 10 Ml Syringe) 10 ml IVP 0100,0900,1700 [facility] Last Admin: 12/14/20 09:43 Dose: Not Given Documented by: Amitriptyline HCl 100 mg PO QPM 12/14/20 Gabapentin [Neurontin] 600 mg PO BID 12/14/20 Gabapentin [Neurontin] 800 mg PO BID 12/14/20 hydroCHLOROthiazide [Hydrodiuril] 25 mg PO DAILY 12/14/20 methocarbamoL [Robaxin] 500 mg PO Q6H PRN 12/14/20
[2020-12-14] MEDS: GABAPENTIN 300 MG CAPSULE PO SCH ×2 (18:08→21:58)
[2020-12-14] MEDS ORDERED: GABAPENTIN 800 MG PO SCH (21:00)
[2020-12-14] MEDS ORDERED: AMITRIPTYLINE 25 MG TABLET PO SCH (21:00)
[2020-12-14] MEDS: AMITRIPTYLINE 25 MG TABLET PO SCH (21:14)
[2020-12-14] MEDS: methocarbamoL 500 MG TABLET PO PRN (21:14)
[2020-12-15] MEDS: SODIUM CHLORIDE FLUSH 0.9% 10 ML SYRINGE IVP SCH ×3 (00:18→16:50)
[2020-12-15] MEDS: GABAPENTIN 100 MG CAPSULE PO SCH ×3 (00:19→16:45)
[2020-12-15] MEDS: oxyCODONE 5 MG TABLET PO PRN ×2 (01:51→05:48)
[2020-12-15 05:01] LABS: HCT - HEMATOCRIT 36.9 % (37.0-47.0); HGB - HEMOGLOBIN 11.9 g/dL (12.0-16.0); MEAN CORPUSCULAR HEMOGLOBIN 27.9 pg (27.0-31.0); MEAN CORPUSCULAR HGB CONC 32.2 g/dL (32.0-36.0); MEAN CORPUSCULAR VOLUME 86.6 fL (81.0-99.0); RED BLOOD COUNT 4.26 10^6/uL (4.20-5.40); RED CELL DISTRIBUTION WIDTH 12.7 % (12.0-15.0); WHITE BLOOD COUNT 15.8 x10^3/uL (4.8-10.8)
[2020-12-15 05:12] LABS: CALCIUM 8.4 mg/dL (8.5-10.3); CREATININE 0.4 mg/dL (0.4-1.0); POTASSIUM 3.5 mmol/L (3.5-5.0)
[2020-12-15] MEDS: GABAPENTIN 300 MG CAPSULE PO SCH ×3 (05:48→23:05)
[2020-12-15] MEDS: CLINDAMYCIN 600 MG/50 ML 50 ML IV SCH ×3 (05:48→23:14)
[2020-12-15] MEDS: ACETAMINOPHEN 325 MG TABLET PO PRN ×3 (05:48→17:42)
[2020-12-15] MEDS: SACCHAROMYCES BOULARDII 250 MG CAPSULE PO SCH ×2 (07:52→16:45)
[2020-12-15] MEDS: SODIUM CHLORIDE 0.9% 1,000 ML IV SCH ×2 (09:07→23:06)
[2020-12-15] MEDS: VANCOMYCIN INJ 1 GM, VANCOMYCIN INJ 500 MG in SODIUM CHLORIDE 0.9% 500 ML IV SCH ×2 (09:08→23:00)
[2020-12-15] MEDS: ENOXAPARIN 40 MG/0.4 ML SYRINGE SUBQ SCH (09:08)
[2020-12-15] MEDS: hydroCHLOROthiazide 25 MG TABLET PO SCH (09:27)
[2020-12-15] MEDS: MORPHINE 2 MG/ML CARPUJECT IVP PRN ×3 (09:27→17:41)
--- NOTE | 2020-12-15 10:57 | Ultrasound Report ---
PROCEDURE: Duplex Ext Veins Right INDICATIONS: pain, swelling, any clots/DVT? TECHNIQUE: Real-time imaging, as well as color and pulse Doppler interrogation, were performed of the lower extr emity deep veins from the inguinal ligament to the popliteal fossa. COMPARISON: None. FINDINGS: The deep veins are normally compressible, and free of intraluminal thrombus. Color and pu lse Doppler demonstrate normal phasic intraluminal flow. There is normal augmentation response to di stal compression maneuver. IMPRESSION: No DVT found right lower extremity. Reviewed by: Ermias Nava MD on 12/15/2020 10:55 AM PDT Approved by: Ermias Nava MD on 12/15/2020 10:55 AM PDT Station ID: [id number]
[2020-12-15] MEDS: methocarbamoL 500 MG TABLET PO PRN (11:29)
--- NOTE | 2020-12-15 14:29 | PROVIDER PROGRESS NOTE ---
Assessment/Plan - Problem List (1) Abscess Assessment/Plan: 12/15, surgeon plan to have I/D for pt, we will followup. US reveals no evidence to suggest to have DVT in right leg. We will continue intravenous antibiotics, patient WBC is down to 16 from 23. wound culture show staph Aureus. CT reveals big size of abscess on the frontier of right lower extremity. Consult with the surgeon, n.p.o. after midnight, plan to have I/D on tomorrow morning. Continue antibiotics, intravenous IV fluids, pain control (2) Cellulitis 12/15 Patient feel better, Pain is reduced. Erythema and swelling are reduced. Blood culture showed negative for bacteremia. WBC is down to 16 from 23 on yeste rday. Wound culture show positive staph aureus. We will continue intravenous antibiotics, Continue probiotics. Improved significantly, Erythema is reduced, patient reported pain is better Controlled. But the WBC has slightly elevated. We will continue antibiotics,Follow-up blood culture and wound culture. (3) Fibromyalgia Conclusion/Plan: stable, Resume home medications (4) Hypertension Conclusion/Plan: stable, Resume home medications, HCTZ (5) SIRS (systemic inflammatory response syndrome) Conclusion/Plan: improved. Tachycardia is resolved. blood pressure is good control and lactic acid is negative. Continue antibiotic treatment And intravenous IV fluids (6)UTI Your culture show positive for E. coli, Urinalysis suggesting UTI. Patient reported Asymptomatic, patient denies urinary urgency or dysuria. Patient is already in antibiotic treatment For her skin infection. (7)Obesity Patient BMI 52, Advised the patient lost weight, Healthy lifestyle - Current Meds Current Meds: Current Medications Generic Name Dose Route Start Last Admin Trade Name Freq PRN Reason Stop Dose Admin Acetaminophen 650 mg 12/13/20 21:39 12/15/20 11:34 Acetaminophen 325 Mg Tablet PO 650 mg Q4HR PRN Administration Pain 1 to 4 Amitriptyline HCl 100 mg 12/14/20 21:00 12/14/20 21:14 Amitriptyline 25 Mg Tablet PO 100 mg QPM DANISH Administration Enoxaparin Sodium 40 mg 12/14/20 09:00 12/15/20 09:08 Enoxaparin 40 Mg/0.4 Ml Syringe SUBQ 40 mg DAILY DANISH Administration Gabapentin 100 mg 12/14/20 08:30 12/15/20 07:56 Gabapentin 100 Mg Capsule PO 100 mg Q8H DANISH Administration Gabapentin 600 mg 12/14/20 18:00 12/15/20 13:08 Gabapentin 300 Mg Capsule PO 600 mg TID DANISH Administration Hydrochlorothiazide 25 mg 12/15/20 09:00 12/15/20 09:27 Hydrochlorothiazide 25 Mg Tablet PO 25 mg DAILY DANISH Administration Clindamycin Phosphate 50 mls @ 100 mls/hr 12/14/20 06:00 12/15/20 13:48 Cleocin 600 Mg/50 Ml IV Infused Q8HR DANISH Infusion Vancomycin HCl 1 gm/ 500 mls @ 250 mls/hr 12/14/20 09:00 12/15/20 11:08 Vancomycin HCl 500 mg/ Sodium IV Infused Chloride Q12H DANISH Infusion Sodium Chloride 1,000 mls @ 100 mls/hr 12/15/20 09:00 12/15/20 09:07 Normal Saline 0.9% IV 12/16/20 04:59 100 mls/hr .Q10H DANISH Administration Ibuprofen 600 mg 12/13/20 21:39 12/14/20 15:31 Ibuprofen 600 Mg Tablet PO 600 mg Q6HR PRN Administration Pain 1 to 4 Methocarbamol 500 mg 12/14/20 16:55 12/15/20 11:29 Methocarbamol 500 Mg Tablet PO 500 mg Q6H PRN Administration Muscle Spasms Morphine Sulfate 2 mg 12/14/20 16:51 12/15/20 13:17 Morphine 2 Mg/Ml Carpuject IVP 2 mg Q2HR PRN Administration PAIN Ondansetron HCl 4 mg 12/13/20 21:39 12/14/20 21:31 Ondansetron Odt 4 Mg Tablet TL 4 mg Q6HR PRN Administration Nausea / Vomiting Oxycodone HCl 5 mg 12/13/20 21:39 12/15/20 05:48 Oxycodone 5 Mg Tablet PO 5 mg Q4HR PRN Administration Pain 5 to 7 Saccharomyces Boulardii 500 mg 12/14/20 08:24 12/15/20 07:52 Saccharomyces Boulardii 250 Mg Capsule PO 500 mg BIDWM DANISH Administration Sodium Chloride 10 ml 12/14/20 01:00 12/15/20 07:58 Sodium Chloride Flush 0.9% 10 Ml Syringe IVP Not Given 0100,0900,1700 DANISH - Lab Result Fish Bone Diagrams: 12/15/20 04:25 12/15/20 04:25 - Additional Planning My Orders: My Active Orders 12/14/20 16:51 Morphine Inj (Carpuject) [Morphine (Carpuject)] 2 mg IVP Q2HR PRN 12/14/20 16:55 methocarbamoL [Robaxin] 500 mg PO Q6H PRN 12/14/20 18:00 Gabapentin [Neurontin] 600 mg PO TID 12/14/20 21:00 Amitriptyline [Elavil] 100 mg PO QPM 12/15/20 00:01 NPO except Meds [DIET] 12/15/20 09:00 Sodium Chloride 0.9% [Normal Saline 0.9%] 1,000 ml IV 100 mls/hr hydroCHLOROthiazide [Hydrodiuril] 25 mg PO DAILY 12/15/20 13:26 Admit [Admit \ Transfer \ Status] [RC] .ONCE 12/15/20 13:33 Foot Pumps [RC] QSHIFT Subjective - Subjective Patient Reports: Feeling Better Objective Vital Signs: Vital Signs - 24 hr 12/14/20 12/14/20 12/15/20 16:16 20:23 00:30 Temperature 36.5 C 36.6 C 36.6 C Heart Rate [ 95 94 104 H Radial] Respiratory 16 16 16 Rate Blood Pressure 138/72 H [Left Radial artery] Blood Pressure 146/73 H 156/68 H [Right Radial artery] O2 Saturation 99 100 95 12/15/20 12/15/20 12/15/20 04:48 09:00 11:50 Temperature 36.6 C 36.6 C 36.6 C Heart Rate [ 102 H 96 100 Radial] Respiratory 16 14 16 Rate Blood Pressure 147/71 H 141/77 H 146/60 H [Left Radial artery] Blood Pressure [Right Radial artery] O2 Saturation 98 95 99 Oxygen O2 Source Room air I&O (Last 24 Hrs): Intake and Output Totals x24h 12/13/20 12/14/20 12/15/20 23:59 23:59 23:59 Intake Total 1415 4926.667 1210 Output Total 850 Balance 1415 4076.667 1210 General: Alert, Oriented x3, Cooperative, No acute distress HEENT: Atraumatic, PERRLA Neck: Supple Lymphatic: no adenopathy Neuro: Alert, Non Focal, Oriented Times 3 Cardiovascular: Regular rate, Normal S1, Normal S2 Respiratory: Chest non-tender, No respiratory distress Abdomen: Normal bowel sounds, Soft Extremities: Normal pulses Comments/Notes: Patient had a normal distal neurological and vascular exam Of right lower extremity. Right lower extremity erythema and swelling is reduced. - Results Results: Laboratory Results WBC 15.8 x10^3/uL (4.8-10.8) H 12/15/20 04:25 RBC 4.26 10^6/uL (4.20-5.40) 12/15/20 04:25 Hgb 11.9 g/dL (12.0-16.0) L 12/15/20 04:25 Hct 36.9 % (37.0-47.0) L 12/15/20 04:25 MCV 86.6 fL (81.0-99.0) 12/15/20 04:25 MCH 27.9 pg (27.0-31.0) 12/15/20 04:25 MCHC 32.2 g/dL (32.0-36.0) 12/15/20 04:25 RDW 12.7 % (12.0-15.0) 12/15/20 04:25 Plt Count 416 10^3/uL (130-450) 12/15/20 04:25 MPV 10.0 fL (7.9-10.8) 12/15/20 04:25 Neut # (Auto) 18.6 10^3/uL (1.5-6.6) H 12/13/20 20:51 Lymph # (Auto) 1.8 10^3/uL (1.5-3.5) 12/13/20 20:51 [place] # (Auto) 2.2 10^3/uL (0.0-1.0) H 12/13/20 20:51 Eos # (Auto) 0.1 10^3/uL (0.0-0.7) 12/13/20 20:51 Baso # (Auto) 0.1 10^3/uL (0.0-0.1) 12/13/20 20:51 Absolute Nucleated RBC 0.00 x10^3/uL 12/13/20 20:51 Band Neuts % (Manual) Not Reportable 12/13/20 20:51 Abnorm Lymph % (Manual) Not Reportable 12/13/20 20:51 Nucleated RBC % 0.0 /100WBC 12/13/20 20:51 Neutrophils # (Manual) Not Reportable 12/13/20 20:51 Lymphocytes # (Manual) Not Reportable 12/13/20 20:51 Monocytes # (Manual) Not Reportable 12/13/20 20:51 Eosinophils # (Manual) Not Reportable 12/13/20 20:51 Basophils # (Manual) Not Reportable 12/13/20 20:51 Differential Comment MANUAL=AUTO DIFF 12/13/20 20:51 Manual Slide Review Indicated 12/13/20 20:51 WBC Morphology NORMAL APPEARANCE (NORMAL) 12/13/20 20:51 Platelet Estimate NORMAL (130-450,000) (NORMAL) 12/13/20 20:51 Platelet Morphology NORMAL APPEARANCE (NORMAL) 12/13/20 20:51 RBC Morph Micro Appear NORMAL APPEARANCE (NORMAL) 12/13/20 20:51 PT 14.8 secs (9.9-12.6) H 12/13/20 20:51 INR 1.4 (0.8-1.2) H 12/13/20 20:51 APTT 27.0 secs (24.9-33.3) 12/13/20 20:51 Sodium 139 mmol/L (135-145) 12/15/20 04:25 Potassium 3.5 mmol/L (3.5-5.0) 12/15/20 04:25 Chloride 101 mmol/L (101-111) 12/15/20 04:25 Carbon Dioxide 27 mmol/L (21-32) 12/15/20 04:25 Anion Gap 11.0 (6-13) 12/15/20 04:25 BUN 7 mg/dL (6-20) 12/15/20 04:25 Creatinine 0.4 mg/dL (0.4-1.0) 12/15/20 04:25 Estimated GFR (MDRD) 169 (>89) 12/15/20 04:25 Glucose 124 mg/dL (70-100) H 12/15/20 04:25 Lactic Acid 0.9 mmol/L (0.5-2.2) 12/13/20 20:51 Calcium 8.4 mg/dL (8.5-10.3) L 12/15/20 04:25 Total Bilirubin 0.8 mg/dL (0.2-1.0) 12/13/20 20:51 AST 24 IU/L (10-42) 12/13/20 20:51 ALT 51 IU/L (10-60) 12/13/20 20:51 Alkaline Phosphatase 130 IU/L (42-121) H 12/13/20 20:51 Total Protein 7.6 g/dL (6.7-8.2) 12/13/20 20:51 Albumin 3.2 g/dL (3.2-5.5) 12/13/20 20:51 Globulin 4.4 g/dL (2.1-4.2) H 12/13/20 20:51 Albumin/Globulin Ratio 0.7 (1.0-2.2) L 12/13/20 20:51 Lipase 17 U/L (22-51) L 12/13/20 20:51 Serum HCG, Qual NEGATIVE 12/14/20 11:45 Urine Color YELLOW 12/13/20 21:21 Urine Clarity SL. CLOUDY (CLEAR) 12/13/20 21:21 Urine pH 7.0 PH (5.0-7.5) 12/13/20 21:21 Ur Specific [place] 1.015 (1.002-1.030) 12/13/20 21:21 Urine Protein NEGATIVE mg/dL (NEGATIVE) 12/13/20 21:21 Urine Glucose (UA) NEGATIVE mg/dL (NEGATIVE) 12/13/20 21:21 Urine Ketones >=80 mg/dL (NEGATIVE) H 12/13/20 21:21 Urine Occult Blood TRACE-INTA (NEGATIVE) 12/13/20 21:21 Urine Nitrite POSITIVE (NEGATIVE) H 12/13/20 21:21 Urine Bilirubin NEGATIVE (NEGATIVE) 12/13/20 21:21 Urine Urobilinogen 4 E.U./dL (NORMAL) H 12/13/20 21:21 Ur Leukocyte Esterase NEGATIVE (NEGATIVE) 12/13/20 21:21 Urine RBC 0-5 /HPF (0-5) 12/13/20 21:21 Urine WBC 4-5 /HPF (0-5) 12/13/20 21:21 Ur Squamous Epith Cells FEW Squamous (<= Few) 12/13/20 21:21 Urine Bacteria Many /HPF (None Seen) H 12/13/20 21:21 Ur Microscopic Review INDICATED 12/13/20 21:21 Urine Culture Comments INDICATED 12/13/20 21:21 Nasal Adenovirus (PCR) NOT DETECTED 12/13/20 21:45 Nasal B. parapertussis DNA (PCR) NOT DETECTED 12/13/20 21:45 Nasal Coronavir 229E PCR NOT DETECTED 12/13/20 21:45 Nasal Coronavir HKU1 PCR NOT DETECTED 12/13/20 21:45 Nasal Coronavir NL63 PCR NOT DETECTED 12/13/20 21:45 Nasal Coronavir OC43 PCR NOT DETECTED 12/13/20 21:45 Nasal Enterovir/Rhinovir PCR NOT DETECTED 12/13/20 21:45 Nasal Influenza B PCR NOT DETECTED 12/13/20 21:45 Nasal Influenza A PCR NOT DETECTED 12/13/20 21:45 Nasal Parainfluen 1 PCR NOT DETECTED 12/13/20 21:45 Nasal Parainfluen 2 PCR NOT DETECTED 12/13/20 21:45 Nasal Parainfluen 3 PCR NOT DETECTED 12/13/20 21:45 Nasal Parainfluen 4 PCR NOT DETECTED 12/13/20 21:45 Nasal RSV (PCR) NOT DETECTED 12/13/20 21:45 Nasal Screen MRSA (PCR) NEGATIVE (NEGATIVE) 12/13/20 22:00 Nasal B.pertussis DNA PCR NOT DETECTED 12/13/20 21:45 Nasal C.pneumoniae (PCR) NOT DETECTED 12/13/20 21:45 [place] Human Metapneumo PCR NOT DETECTED 12/13/20 21:45 Nasal M.pneumoniae (PCR) NOT DETECTED 12/13/20 21:45 Nasal SARS-CoV-2 (PCR) NOT DETECTED 12/13/20 21:45 Sepsis Event Note (H) - Evaluation Current Stage of Sepsis: Ruled out ABX Reporting Has patient been on IV antibiotics over the past 48 hours?: Yes Current Medications - Current Medications Current Medications: Active Medications Acetaminophen (Acetaminophen 325 Mg Tablet) 650 mg PO Q4HR PRN PRN Reason: Pain 1 to 4 Last Admin: 12/15/20 11:34 Dose: 650 mg Documented by: Amitriptyline HCl (Amitriptyline 25 Mg Tablet) 100 mg PO QPM DANISH Last Admin: 12/14/20 21:14 Dose: 100 mg Documented by: Enoxaparin Sodium (Enoxaparin 40 Mg/0.4 Ml Syringe) 40 mg SUBQ DAILY REPLACED BY [facility] Last Admin: 12/15/20 09:08 Dose: 40 mg Documented by: Gabapentin (Gabapentin 100 Mg Capsule) 100 mg PO Q8H REPLACED BY [facility] Last Admin: 12/15/20 07:56 Dose: 100 mg Documented by: Gabapentin (Gabapentin 300 Mg Capsule) 600 mg PO TID REPLACED BY [facility] Last Admin: 12/15/20 13:08 Dose: 600 mg Documented by: Hydrochlorothiazide (Hydrochlorothiazide 25 Mg Tablet) 25 mg PO DAILY REPLACED BY [facility] Last Admin: 12/15/20 09:27 Dose: 25 mg Documented by: Clindamycin Phosphate (Cleocin 600 Mg/50 Ml) 50 mls @ 100 mls/hr IV Q8HR REPLACED BY [facility] Last Infusion: 12/15/20 13:48 Dose: Infused Documented by: Vancomycin HCl 1 gm/Vancomycin HCl 500 mg/ Sodium Chloride 500 mls @ 250 mls/hr IV Q12H REPLACED BY [facility] Last Infusion: 12/15/20 11:08 Dose: Infused Documented by: Sodium Chloride (Normal Saline 0.9%) 1,000 mls @ 100 mls/hr IV .Q10H REPLACED BY [facility] Stop: 12/16/20 04:59 Last Admin: 12/15/20 09:07 Dose: 100 mls/hr Documented by: Ibuprofen (Ibuprofen 600 Mg Tablet) 600 mg PO Q6HR PRN PRN Reason: Pain 1 to 4 Last Admin: 12/14/20 15:31 Dose: 600 mg Documented by: Methocarbamol (Methocarbamol 500 Mg Tablet) 500 mg PO Q6H PRN PRN Reason: Muscle Spasms Last Admin: 12/15/20 11:29 Dose: 500 mg Documented by: Morphine Sulfate (Morphine 2 Mg/Ml Carpuject) 2 mg IVP Q2HR PRN PRN Reason: PAIN Last Admin: 12/15/20 13:17 Dose: 2 mg Documented by: Ondansetron HCl (Ondansetron Odt 4 Mg Tablet) 4 mg TL Q6HR PRN PRN Reason: Nausea / Vomiting Last Admin: 12/14/20 21:31 Dose: 4 mg Documented by: Oxycodone HCl (Oxycodone 5 Mg Tablet) 5 mg PO Q4HR PRN PRN Reason: Pain 5 to 7 Last Admin: 12/15/20 05:48 Dose: 5 mg Documented by: Saccharomyces Boulardii (Saccharomyces Boulardii 250 Mg Capsule) 500 mg PO BIDWM REPLACED BY [facility] Last Admin: 12/15/20 07:52 Dose: 500 mg Documented by: Sodium Chloride (Sodium Chloride Flush 0.9% 10 Ml Syringe) 10 ml IVP PRN PRN PRN Reason: NEEDED PER PROVIDER ORDERS Sodium Chloride (Sodium Chloride Flush 0.9% 10 Ml Syringe) 10 ml IVP 0100,0900,1700 REPLACED BY [facility] Last Admin: 12/15/20 07:58 Dose: Not Given Documented by: Amitriptyline HCl 100 mg PO QPM 12/14/20 Gabapentin [Neurontin] 600 mg PO BID 12/14/20 Gabapentin [Neurontin] 800 mg PO BID 12/14/20 hydroCHLOROthiazide [Hydrodiuril] 25 mg PO DAILY 12/14/20 methocarbamoL [Robaxin] 500 mg PO Q6H PRN 12/14/20
[2020-12-15] MEDS: SODIUM CHLORIDE FLUSH 0.9% 10 ML SYRINGE IVP PRN (17:43)
--- NOTE | 2020-12-15 19:22 | ANESTHESIA ---
Pre-Anesthesia VS, & Labs - Diagnosis lower leg wound, cellulitis - Procedure I and D right lower leg wound Vital Signs: Temp Pulse Resp BP Pulse Ox 36.6 C 96 20 149/75 H 98 12/15/20 15:30 12/15/20 15:30 12/15/20 15:30 12/15/20 15:30 12/15/20 15:30 Height: 5 ft 8 in Weight (kg): 154 kg Body Mass Index: 51.6 BMI Classification: Morbidly Obese - NPO >8 hours - Is Patient ?: No - Lab Results Current Lab Results: Laboratory Tests 12/15/20 04:25: Sodium 139, Potassium 3.5, Chloride 101, Carbon Dioxide 27, Anion Gap 11.0, BUN 7, Creatinine 0.4, Estimated GFR (MDRD) 169, Glucose 124 H, Calcium 8.4 L 12/15/20 04:25: WBC 15.8 H, RBC 4.26, Hgb 11.9 L, Hct 36.9 L, MCV 86.6, MCH 2 7.9, MCHC 32.2, RDW 12.7, Plt Count 416, MPV 10.0 12/14/20 11:45: Serum HCG, Qual NEGATIVE 12/14/20 05:00: Sodium 136, Potassium 3.3 L, Chloride 101, Carbon Dioxide 27, Anion Gap 8.0, BUN 10, Creatinine 0.4, Estimated GFR (MDRD) 169, Glucose 111 H, Calcium 8.6 12/14/20 05:00: WBC 23.2 H, RBC 4.37, Hgb 12.0, Hct 37.0, MCV 84.7, MCH 27.5, MCHC 32.4, RDW 12.7, Plt Count 409, MPV 10.1 12/13/20 20:51: Lactic Acid 0.9 12/13/20 20:51: Sodium 134 L, Potassium 3.7, Chloride 97 L, Carbon Dioxide 25, Anion Gap 12.0, BUN 10, Creatinine 0.5, Estimated GFR (MDRD) 131, Glucose 113 H, Calcium 8.9, Total Bilirubin 0.8, AST 24, ALT 51, Alkaline Phosphatase 130 H, Total Protein 7.6, Albumin 3.2, Globulin 4.4 H, Albumin/Globulin Ratio 0.7 L, Lipase 17 L 12/13/20 20:51: PT 14.8 H, INR 1.4 H, APTT 27.0 12/13/20 20:51: WBC 22.9 H, RBC 4.48, Hgb 12.7, Hct 37.2, MCV 83.0, MCH 28.3, MCHC 34.1, RDW 12.4, Plt Count 407, MPV 9.8, Neut # (Auto) 18.6 H, Lymph # (Auto) 1.8, [place] # (Auto) 2.2 H, Eos # (Auto) 0.1, Baso # (Auto) 0.1, Absolute Nucleated RBC 0.00, Band Neuts % (Manual) Not Reportable, Abnorm Lymph % (Manual) Not Reportable, Nucleated RBC % 0.0, Neutrophils # (Manual) Not Repor table, Lymphocytes # (Manual) Not Reportable, Monocytes # (Manual) Not Reportable, Eosinophils # (Manual) Not Reportable, Basophils # (Manual) Not Reportable, Differential Comment MANUAL=AUTO DIFF, Manual Slide Review Indicated, WBC Morphology NORMAL APPEARANCE, Platelet Estimate NORMAL (130-450,000), Platelet Morphology NORMAL APPEARANCE, RBC Morph Micro Appear NORMAL APPEARANCE Fish Bones: 12/15/20 04:25 12/15/20 04:25 Home Medications and Allergies Home Medications: Ambulatory Orders Amitriptyline HCl 100 mg PO QPM 12/14/20 Gabapentin [Neurontin] 600 mg PO BID 12/14/20 Gabapentin [Neurontin] 800 mg PO BID 12/14/20 hydroCHLOROthiazide [Hydrodiuril] 25 mg PO DAILY 12/14/20 methocarbamoL [Robaxin] 500 mg PO Q6H PRN 12/14/20 Active Medications Acetaminophen (Acetaminophen 325 Mg Tablet) 650 mg PO Q4HR PRN PRN Reason: Pain 1 to 4 Last Admin: 12/15/20 17:42 Dose: 650 mg Documented by: Amitriptyline HCl (Amitriptyline 25 Mg Tablet) 100 mg PO QPM [facility] Last Admin: 12/14/20 21:14 Dose: 100 mg Documented by: Enoxaparin Sodium (Enoxaparin 40 Mg/0.4 Ml Syringe) 40 mg SUBQ DAILY [facility] Last Admin: 12/15/20 09:08 Dose: 40 mg Documented by: Gabapentin (Gabapentin 100 Mg Capsule) 100 mg PO Q8H [facility] Last Admin: 12/15/20 16:45 Dose: 100 mg Documented by: Gabapentin (Gabapentin 300 Mg Capsule) 600 mg PO TID [facility] Last Admin: 12/15/20 13:08 Dose: 600 mg Documented by: Hydrochlorothiazide (Hydrochlorothiazide 25 Mg Tablet) 25 mg PO DAILY [facility] Last Admin: 12/15/20 09:27 Dose: 25 mg Documented by: Clindamycin Phosphate (Cleocin 600 Mg/50 Ml) 50 mls @ 100 mls/hr IV Q8HR [facility] Last Infusion: 12/15/20 13:48 Dose: Infused Documented by: Vancomycin HCl 1 gm/Vancomycin HCl 500 mg/ Sodium Chloride 500 mls @ 250 mls/hr IV Q12H [facility] Last Infusion: 12/15/20 11:08 Dose: Infused Documented by: Sodium Chloride (Normal Saline 0.9%) 1,000 mls @ 100 mls/hr IV .Q10H [facility] Stop: 12/16/20 04:59 Last Admin: 12/15/20 09:07 Dose: 100 mls/hr Documented by: Ibuprofen (Ibuprofen 600 Mg Tablet) 600 mg PO Q6HR PRN PRN Reason: Pain 1 to 4 Last Admin: 12/14/20 15:31 Dose: 600 mg Documented by: Methocarbamol (Methocarbamol 500 Mg Tablet) 500 mg PO Q6H PRN PRN Reason: Muscle Spasms Last Admin: 12/15/20 11:29 Dose: 500 mg Documented by: Morphine Sulfate (Morphine 2 Mg/Ml Carpuject) 2 mg IVP Q2HR PRN PRN Reason: PAIN Last Admin: 12/15/20 17:41 Dose: 2 mg Documented by: Ondansetron HCl (Ondansetron Odt 4 Mg Tablet) 4 mg TL Q6HR PRN PRN Reason: Nausea / Vomiting Last Admin: 12/14/20 21:31 Dose: 4 mg Documented by: Oxycodone HCl (Oxycodone 5 Mg Tablet) 5 mg PO Q4HR PRN PRN Reason: Pain 5 to 7 Last Admin: 12/15/20 05:48 Dose: 5 mg Documented by: Saccharomyces Boulardii (Saccharomyces Boulardii 250 Mg Capsule) 500 mg PO BIDWM [facility] Last Admin: 12/15/20 16:45 Dose: 500 mg Documented by: Sodium Chloride (Sodium Chloride Flush 0.9% 10 Ml Syringe) 10 ml IVP PRN PRN PRN Reason: NEEDED PER PROVIDER ORDERS Last Admin: 12/15/20 17:43 Dose: 10 ml Documented by: Sodium Chloride (Sodium Chloride Flush 0.9% 10 Ml Syringe) 10 ml IVP 0100,0900,1700 [facility] Last Admin: 12/15/20 16:50 Dose: Not Given Documented by: Amitriptyline HCl 100 mg PO QPM 12/14/20 Gabapentin [Neurontin] 600 mg PO BID 12/14/20 Gabapentin [Neurontin] 800 mg PO BID 12/14/20 hydroCHLOROthiazide [Hydrodiuril] 25 mg PO DAILY 12/14/20 methocarbamoL [Robaxin] 500 mg PO Q6H PRN 12/14/20 Allergies/Adverse Reactions: Allergies Allergy/AdvReac Type Severity Reaction Status Date / Time Penicillins AdvReac Nausea Verified 12/13/20 20:06 Anes History & Medical History - Anesthetic History Anesthesia Complications: reports: No previous complications - Medical History Cardiovascular: reports: Hypertension Pulmonary: reports: None Musculoskeletal: reports: Fibromyalgia Endocrine/Autoimmune: reports: None Smoking Status: Never smoker - Surgical History Gynecologic: reports: section Exam General: Alert Dental: WNL Neck Mobility: Normal Mallampati classification: II Thyromental Distance: greater than 6 cm Respiratory: Lungs clear Cardiovascular: Regular rate Plan Anesthesia Type: Spinal Consent for Procedure(s) Verified and Reviewed: Yes Code Status: Attempt Resuscitation ASA classification: 3-Severe systemic disease Is this case an emergency?: Yes
--- NOTE | 2020-12-15 21:12 | SURGERY HX AND PHYSICAL(T) ---
Surgical History & Physical - Chief Complaint/HPI Chief Complaint: Right lower extremity skin and subcutaneous tissue abscess History of Present Illness: 50-year-old female who has no immunocompromise state, no chronic steroids, no diabetes who presents with malaise and febrile episodes and work-up revealing a right lower extremity foreleg anterior skin and subcutaneous infection. Patient admitted to the hospital service. CT scan appreciated. Positive pulses with no concerns for ischemia or other complication. Upon review and my recommendation for duplex venous Doppler to rule out deep vein thrombosis this was also negative as well. No similar episodes in the past. - PMH/PSH/Social Hx Does the pt have a hx of MRSA?: No Cardiovascular: Hypertension Respiratory: None Endocrine/Autoimmune: None [employer]: Ovarian cysts Musculoskeletal: Fibromyalgia Smoking Status: Never smoker Does the pt drink ETOH?: No Does the pt have substance abuse?: No - Home Meds and Allergies Home Medications: Amitriptyline HCl 100 mg PO QPM 12/14/20 Gabapentin [Neurontin] 600 mg PO BID 12/14/20 Gabapentin [Neurontin] 800 mg PO BID 12/14/20 hydroCHLOROthiazide [Hydrodiuril] 25 mg PO DAILY 12/14/20 methocarbamoL [Robaxin] 500 mg PO Q6H PRN 12/14/20 Allergies/Adverse Reactions: Allergies Allergy/AdvReac Type Severity Reaction Status Date / Time Penicillins AdvReac Nausea Verified 12/13/20 20:06 - Review of Systems Constitutional: Fatigue, Fever - Vital Signs Heart Rate: 122 Blood Pressure: 149/91 Temperature: 36.6 C Respiratory Rate: 18 O2 Saturation: 97 Weight (kg): 154 kg Height: 1.73 m - Physical Exam Comments/Other: General Appearance: positive: No acute distress Eyes Bilateral: positive: Normal inspection ENT: positive: ENT inspection nml Neck: positive: Nml inspection Respiratory: positive: Chest non-tender, No respiratory distress, Breath sounds nml. negative: Wheezes, Rales, Rhonchi Cardiovascular: positive: Regular rate & rhythm Abdomen: positive: No distention, Other. negative: Guarding, Rebound Extremities: positive: Non-tender, Full ROM, Nml appearance Neurologic/Psychiatric: positive: Oriented x3, CN's nml (2-12) Pulses: Femoral Popliteal Dorsal Ped Post Tibial Right Pos/Palp Pos/Palp Pos/Palp Pos/Palp Left Pos/Palp Pos/Palp Pos/Palp Pos/Palp Right lower extremity proximal anterior foreleg with cellulitic changes, blanching erythema, fluctuance, consistent with abscess cavity. - Patient Review Patient Review: Problems were reviewed with the patient during this visit. Medications were reviewed with the patient during this visit. Allergies were reviewed this patient during this visit. Pertinent Tests Reviewed: All pertitent test for this patient were reviewed. - Assessment & Plan Assessment and Plan: 50-year-old super obese female with right foreleg anterior abscess cavity. Patient exceedingly anxious. Patient refusing monitored anesthesia care. Anxious about any sort of sedation. Wishes only local block. Thus proceed to the operating room for incision and drainage. N.p.o. Antibiotics per hospitalist. Washout and wound VAC placement.
[2020-12-15] MEDS ORDERED: fentaNYL 100 MCG/2 ML VIAL ONE (21:15)
[2020-12-15] MEDS ORDERED: BUPIVACAINE 0.5%-EPI 1:200000 PF 30 ML VIAL ONE (21:50)
[2020-12-15] MEDS ORDERED: BUPIVACAINE 0.5%-EPI 1:200000 PF 30 ML VIAL SUBQ ONE (22:00)
[2020-12-15] MEDS ORDERED: NALOXONE 0.4 MG/ML VIAL IVP PRN (22:11)
[2020-12-15] MEDS ORDERED: ePHEDrine 50 MG/ML VIAL IVP PRN (22:11)
[2020-12-15] MEDS ORDERED: HYDROmorphone 0.5 MG/0.5 ML SYRINGE IVP PRN (22:11)
[2020-12-15] MEDS ORDERED: MORPHINE 2 MG/ML CARPUJECT IVP PRN (22:11)
[2020-12-15] MEDS ORDERED: METOCLOPRAMIDE 10 MG/2 ML VIAL IVP PRN (22:11)
[2020-12-15] MEDS ORDERED: fentaNYL 100 MCG/2 ML VIAL IVP PRN (22:11)
[2020-12-15] MEDS ORDERED: ONDANSETRON 4 MG/2 ML VIAL IVP PRN (22:11)
[2020-12-15] MEDS ORDERED: ATROPINE ABBOJECT 1 MG/10 ML SYRINGE IVP PRN (22:11)
[2020-12-15] MEDS ORDERED: LACTATED RINGERS 1,000 ML IV ONE (22:24)
--- NOTE | 2020-12-15 22:45 | ANESTHESIA POST OP EVALUATION ---
Anesthesia Post Eval - Post Anesthesia Eval Vitals: Last Vital Signs Temp 36.3 C L 12/15/20 22:40 Pulse 96 12/15/20 22:40 Resp 18 12/15/20 22:40 BP 147/74 H 12/15/20 22:40 Pulse Ox 100 12/15/20 22:40 CV Function Including HR & BP: Stable Pain Control: Satisfactory Nausea & Vomiting: Negative Mental Status: Baseline Respiratory Status: Airway Patent Hydration Status: Satisfactory Anesthesia Complications: None
--- NOTE | 2020-12-15 22:47 | OPERATIVE REPORT ---
Operative Report - General Admit Date: 12/15/20 Procedure Date: 12/15/20 Planned Procedure: 1. Right lower extremity incision and drainage 2. Right lower extremity washout 3. Right lower extremity wound VAC placement Pre-Op Diagnosis: Sepsis, right lower extremity abscess, skin & subcu tissue cellulilitis Procedure Performed: 1. Right lower extremity incision and drainage 2. Right lower extremity washout 3. Right lower extremity wound VAC placement 4. Evacuation of right lower extremity infected hematoma Post Op Diagnosis: Same; Infected hematoma right lower extremity - Procedure Note Primary Surgeon: Landon Secondary Surgeon: Geoffrey Anesthesia Provider: Erica Anesthesia Technique: Local, Spinal Pathology: Abscess for tissue pathology and culture Estimated Blood Loss (mL): 50 Indications: See EMR Findings: 10cm X 6cm X 6cm (superficial) 10cm X 8cm X 3cm (Deep) Complications: NONE - Other Other Information/Narrative: Procedure Performed: 1. Right lower extremity incision and drainage 2. Right lower extremity washout 3. Right lower extremity wound VAC placement 4. Evacuation of right lower extremity infected hematoma Findings: 10cm X 6cm X 6cm (superficial) 10cm X 8cm X 3cm (Deep) Operative report: Patient was taken to the operating room and maintained supine on her silvestre bed. Extensive discussion was had with both anesthesia and myself as a relates to monitor anesthesia care. The patient was reticent to proceed with any sedation. She was adamant that neither general nor associated sedatives including propofol be used. She was amenable only to a spinal and/or epidural. A great deal of time was spent discussing postoperative analgesia as well as the potential need for further operative interventions. The patient insisted on remaining awake throughout the entirety of this operative intervention. She was further apprehensive that we are performing the procedure as late as we were; she was offered an earlier opportunity with Dr. Preston, my partner. When he approached her and discussed proceeding she similarly deferred any intervention dependent upon the use of sedation. Moreover given the location of the operative field, local nerve blocks and their success would be questionable. Ultimately we discussed with check writer salesperson and patient that we will proceed with a spinal and instillation of local at the wound site. With all this understood, the patient already marked for her right lower extremity/right foreleg anterior preoperatively, the patient's leg was prepped and draped in the usual sterile fashion. Patient was already on scheduled antibiotics. A timeout was called and agreed to by all the room. Patient was already placed for spinal anesthetic already. We made an incision approximately 10 cm to encompass an ellipse of tissue with associated skin and soft tissue necrosis overlying the area of maximum fluctuance. This was midline and immediately produced a large volume of purulent drainage. This was sent for culture and sensitivity. Please note that tissue was also sent for culture and sensitivity from this area as well as for permanent pathology. The area of concern in the associated fluctuance appeared at this point to be likely consistent with a infected hematoma given the size of the cavity and correlates with the patient's remote memory of trauma several weeks prior. The cavity superficially tapered towards the tibia with no exposed bone or muscle, however there was a deeper compartment that tracked 10 cm from the surface of the skin and was approximately 6 to 8 cm craniocaudal and 3 to 4 cm in width. This entire area was aggressively debrided with sharp scalpel excision as well as blunt abrasion using a Bovie scratch pad. Hemostasis was achieved with Bovie electrocautery. The wound was thereafter aggressively irrigated with pulse lavage. There were no other areas of palpable fluctuance or infectious etiology noted. With a pulse lavage completed, the following were the ultimate the dimensions: 10cm X 6cm X 6cm (superficial) 10cm X 8cm X 3cm (Deep) We proceeded to place 4 pieces of black sponge to accommodate this area. A piece of Surgicel was placed deep within the medial pocket for hemostasis, al though grossly the wound was dry. With a 4 pieces of black sponge inserted, the clear dressing was placed atop and the suction button was installed. Local was instilled surrounding the wound. Patient tolerated well for which is no complication. The wound VAC was set to -125 mmHg. Plan going forward would be as follows: 1. Await cultures sensitivity and specificity 2. Continue IV antibiotics and transition and de-escalate to oral regimen 3. Continue local wound therapy with negative pressure dressing 4. Outpatient follow-up Please note that voice recognition software was used to transcribe this note and inadvertent errors might persist in spite of review and editing. I am obliged to you for your attention. I am thankful to you for allowing me to participate with you in this care of this patient.
--- NOTE | 2020-12-15 22:51 | PROVIDER PROGRESS NOTE ---
Progress Note BRIEF Operative Report - General Admit Date: 12/15/20 Procedure Date: 12/15/20 Planned Procedure: 1. Right lower extremity incision and drainage 2. Right lower extremity washout 3. Right lower extremity wound VAC placement Pre-Op Diagnosis: Sepsis, right lower extremity abscess, skin & subcu tissue cellulilitis Procedure Performed: 1. Right lower extremity incision and drainage 2. Right lower extremity washout 3. Right lower extremity wound VAC placement 4. Evacuation of right lower extremity infected hematoma Post Op Diagnosis: Same; Infected hematoma right lower extremity - Procedure Note Primary Surgeon: Landon Secondary Surgeon: Geoffrey Anesthesia Provider: Erica Anesthesia Technique: Local, Spinal Pathology: Abscess for tissue pathology and culture Estimated Blood Loss (mL): 50 Indications: See EMR Findings: 10cm X 6cm X 6cm (superficial) 10cm X 8cm X 3cm (Deep) Complications: NONE
[2020-12-15] MEDS ORDERED: LACTATED RINGERS 1,000 ML IV SCH (23:00)
[2020-12-15] MEDS: AMITRIPTYLINE 25 MG TABLET PO SCH (23:08)
[2020-12-16] MEDS: SODIUM CHLORIDE FLUSH 0.9% 10 ML SYRINGE IVP SCH ×4 (00:08→23:35)
[2020-12-16] MEDS: GABAPENTIN 100 MG CAPSULE PO SCH ×4 (01:18→23:35)
[2020-12-16] MEDS: ACETAMINOPHEN 325 MG TABLET PO PRN ×6 (01:25→21:27)
[2020-12-16] MEDS: oxyCODONE 5 MG TABLET PO PRN ×6 (01:25→21:27)
[2020-12-16 05:35] LABS: HCT - HEMATOCRIT 38.4 % (37.0-47.0); HGB - HEMOGLOBIN 12.4 g/dL (12.0-16.0); MEAN CORPUSCULAR HEMOGLOBIN 27.4 pg (27.0-31.0); MEAN CORPUSCULAR HGB CONC 32.3 g/dL (32.0-36.0); MEAN CORPUSCULAR VOLUME 84.8 fL (81.0-99.0); RED BLOOD COUNT 4.53 10^6/uL (4.20-5.40); RED CELL DISTRIBUTION WIDTH 12.8 % (12.0-15.0); WHITE BLOOD COUNT 17.4 x10^3/uL (4.8-10.8)
[2020-12-16] MEDS: GABAPENTIN 300 MG CAPSULE PO SCH ×3 (05:38→21:27)
[2020-12-16] MEDS: CLINDAMYCIN 600 MG/50 ML 50 ML IV SCH ×3 (05:39→21:27)
[2020-12-16 05:41] LABS: CALCIUM 8.8 mg/dL (8.5-10.3); CREATININE 0.6 mg/dL (0.4-1.0)
[2020-12-16] MEDS ORDERED: POTASSIUM CHLORIDE 20 MEQ TABLET PO ONE ×2 (07:12→07:35)
[2020-12-16] MEDS: SACCHAROMYCES BOULARDII 250 MG CAPSULE PO SCH ×2 (07:56→16:38)
[2020-12-16] MEDS ORDERED: D5.45NS W/20 MEQ KCL 1,000 ML IV SCH (08:00)
[2020-12-16] MEDS: ENOXAPARIN 40 MG/0.4 ML SYRINGE SUBQ SCH (08:25)
[2020-12-16] MEDS: hydroCHLOROthiazide 25 MG TABLET PO SCH (08:25)
[2020-12-16 08:56] LABS: VANCOMYCIN,TROUGH 8.3 ug/mL (10.0-20.0)
--- NOTE | 2020-12-16 09:27 | PHARMACY PROGRESS NOTE ---
- Therapy Status Therapy status: Trough subtherapeutic Basis for treatment: Empirical Treatment indication: SSTI Trough goal: 10-15 Concurrent antibiotics: Clindamycin - DANNA Risk Risk level for Acute Kidney Injury: Moderate Acute Kidney Injury risk factors: Wt >100kg or BMI >40, IV contrast within 72 hrs - Monitoring and Recommendation Clinical response to treatment: I&O Previous 24 hours 12/14/20 12/15/20 12/16/20 23:59 23:59 23:59 Intake Total 4926.667 3210 1000 Output Total 850 Balance 4076.667 3210 1000 Lab Results 12/16/20 12/15/20 12/14/20 05:05 04:25 05:00 BUN 7 7 10 Creatinine 0.6 0.4 0.4 Estimated GFR (MDRD) 106 169 169 12/13/20 20:51 BUN 10 Creatinine 0.5 Estimated GFR (MDRD) 131 Vancomycin Monitoring 12/16/20 08:33 Vancomycin Trough 8.3 L Cultures 12/15/20 22:00 Right Lower Extremity - Abscess Wound Culture - Preliminary 12/13/20 21:01 Blood Blood Culture - Preliminary NO GROWTH AFTER 2 DAYS 12/13/20 20:51 Blood - Right Arm Blood Culture - Preliminary NO GROWTH AFTER 2 DAYS 12/14/20 08:15 Leg - Right Wound Culture - Preliminary Staphylococcus Aureus 12/13/20 21:21 Urine,Clean Catch Urine Culture - Preliminary Escherichia Coli Monitoring plan: Daily serum creatinine, Suggest ongoing fluid replacement Areas for additional monitoring: IV to PO when appropriate, Therapy de- escalation based on culture results, Acute Kidney Injury Pharmacy recommendation: Increase dose (New maintenance dose: 1750 mg IV q8h for estimated trough of 13.7)
[2020-12-16] MEDS: PANTOPRAZOLE 40 MG TABLET PO SCH (09:29)
[2020-12-16] MEDS ORDERED: GI COCKTAIL 120 ML BOTTLE PO SCH (10:00)
[2020-12-16] MEDS: VANCOMYCIN INJ 1.75 GM in SODIUM CHLORIDE 0.9% 500 ML IV SCH ×2 (10:20→18:17)
--- NOTE | 2020-12-16 14:04 | PROVIDER PROGRESS NOTE ---
Assessment/Plan - Problem List (1) Abscess Assessment/Plan: 12/16 Patient had I&D done yesterday, now with wound VAC placement. wound culture was sent out again and pending. continue antibiotics, Vac care. followup with surgeon's recommendation. 12/15, surgeon plan to have I/D for pt, we will followup. US reveals no evidence to suggest to have DVT in right leg. We will continue intravenous antibiotics, patient WBC is down to 16 from 23. wound culture show staph Aureus. CT reveals big size of abscess on the frontier of right lower extremity. Consult with the surgeon, n.p.o. after midnight, plan to have I/D on tomorrow morning. Continue antibiotics, intravenous IV fluids, pain control (2) Cellulitis 12/16 Patient report the pain is good control, Patient also had I&D done yesterday. WBC is slightly elevated, Likely reactive and stress response. Previous wound culture show staph aureus. Continue antibiotics. 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 Erythema and swelling are reduced. Blood culture showed negative for bacteremia. WBC is down to 16 from 23 on yesterday. Wound culture show positive staph aureus. We will continue intravenous antibiotics, Continue probiotics. Improved significantly, Erythema is reduced, patient reported pain is better Controlled. But the WBC has slightly elevated. We will continue antibiotics,Follow-up blood culture and wound culture. (3) Fibromyalgia Conclusion/Plan: stable, Resume home medications (4) Hypertension Conclusion/Plan: stable, Resume home medications, HCTZ (5) SIRS (systemic inflammatory response syndrome) Conclusion/Plan: improved. Tachycardia is resolved. blood pressure is good control and lactic acid is negative. Continue antibiotic treatment And intravenous IV fluids (6)UTI Your culture show positive for E. coli, Urinalysis suggesting UTI. Patient reported Asymptomatic, patient denies urinary urgency or dysuria. Patient is already in antibiotic treatment For her skin infection. (7)Obesity Patient BMI 52, Advised the patient lost weight, Healthy lifestyle (8)GERD 12/16 Patient complain of stomach upset, burning. Add Protonix, GI cocktail as needed - Current Meds Current Meds: Current Medications Generic Name Dose Route Start Last Admin Trade Name Freq PRN Reason Stop Dose Admin Acetaminophen 650 mg 12/13/20 21:39 12/16/20 13:40 Acetaminophen 325 Mg Tablet PO 650 mg Q4HR PRN Administration Pain 1 to 4 Amitriptyline HCl 100 mg 12/14/20 21:00 12/15/20 23:08 Amitriptyline 25 Mg Tablet PO 100 mg QPM DANISH Administration Enoxaparin Sodium 40 mg 12/14/20 09:00 12/16/20 08:25 Enoxaparin 40 Mg/0.4 Ml Syringe SUBQ 40 mg DAILY DANISH Administration Gabapentin 100 mg 12/14/20 08:30 12/16/20 08:25 Gabapentin 100 Mg Capsule PO 100 mg Q8H DANISH Administration Gabapentin 600 mg 12/14/20 18:00 12/16/20 13:41 Gabapentin 300 Mg Capsule PO 600 mg TID DANISH Administration Hydrochlorothiazide 25 mg 12/15/20 09:00 12/16/20 08:25 Hydrochlorothiazide 25 Mg Tablet PO 25 mg DAILY DANISH Administration Clindamycin Phosphate 50 mls @ 100 mls/hr 12/14/20 06:00 12/16/20 13:41 Cleocin 600 Mg/50 Ml IV 100 mls/hr Q8HR DANISH Administration Potassium Chloride/Dextrose/Sod Cl 1,000 mls @ 100 mls/hr 12/16/20 08:00 12/16/20 12:25 D5.45ns W/20 Meq Kcl IV 12/16/20 17:59 100 mls/hr .Q10H DANISH Infusion Vancomycin HCl 1.75 gm/ Sodium 500 mls @ 250 mls/hr 12/16/20 10:00 12/16/20 12:20 Chloride IV Infused Q8H DANISH Infusion Ibuprofen 600 mg 12/13/20 21:39 12/14/20 15:31 Ibuprofen 600 Mg Tablet PO 600 mg Q6HR PRN Administration Pain 1 to 4 Methocarbamol 500 mg 12/14/20 16:55 12/15/20 11:29 Methocarbamol 500 Mg Tablet PO 500 mg Q6H PRN Administration Muscle Spasms Morphine Sulfate 2 mg 12/14/20 16:51 12/15/20 17:41 Morphine 2 Mg/Ml Carpuject IVP 2 mg Q2HR PRN Administration PAIN Ondansetron HCl 4 mg 12/13/20 21:39 12/14/20 21:31 Ondansetron Odt 4 Mg Tablet TL 4 mg Q6HR PRN Administration Nausea / Vomiting Oxycodone HCl 5 mg 12/13/20 21:39 12/16/20 13:41 Oxycodone 5 Mg Tablet PO 5 mg Q4HR PRN Administration Pain 5 to 7 Pantoprazole Sodium 40 mg 12/16/20 10:00 12/16/20 09:29 Pantoprazole 40 Mg Tablet PO 40 mg QDAC DANISH Administration Saccharomyces Boulardii 500 mg 12/14/20 08:24 12/16/20 07:56 Saccharomyces Boulardii 250 Mg Capsule PO 500 mg BIDWM DANISH Administration Sodium Chloride 10 ml 12/13/20 21:39 12/15/20 17:43 Sodium Chloride Flush 0.9% 10 Ml Syringe IVP 10 ml PRN PRN Administration NEEDED PER PROVIDER ORDERS Sodium Chloride 10 ml 12/14/20 01:00 12/16/20 08:26 Sodium Chloride Flush 0.9% 10 Ml Syringe IVP 10 ml 0100,0900,1700 DANISH Administration - Lab Result Fish Bone Diagrams: 12/16/20 05:05 12/16/20 05:05 - Additional Planning My Orders: My Active Orders 12/15/20 13:33 Foot Pumps [RC] QSHIFT 12/15/20 Dinner Regular Diet [DIET] 12/16/20 08:00 D5.45ns W/20 Meq KCl 1,000 ml IV 100 mls/hr 12/16/20 09:12 Gi Cocktail 30 ml PO Q4H PRN 12/16/20 10:00 Pantoprazole [Protonix] 40 mg PO QDAC 12/17/20 05:00 CRP - C-REACTIVE PROTEIN [CHEM] DAILYLAB 12/18/20 05:00 CRP - C-REACTIVE PROTEIN [CHEM] DAILYLAB 12/19/20 05:00 CRP - C-REACTIVE PROTEIN [CHEM] DAILYLAB 12/20/20 05:00 CRP - C-REACTIVE PROTEIN [CHEM] DAILYLAB 12/21/20 05:00 CRP - C-REACTIVE PROTEIN [CHEM] DAILYLAB 12/22/20 05:00 CRP - C-REACTIVE PROTEIN [CHEM] DAILYLAB Subjective - Subjective Patient Reports: Feeling Better Objective Vital Signs: Vital Signs - 24 hr 12/15/20 12/15/20 12/15/20 15:30 21:00 21:22 Temperature 36.6 C 36.6 C 36.6 C Heart Rate 122 H Heart Rate [ 96 Brachial] Heart Rate [ 96 Radial] Respiratory 20 18 18 Rate Blood Pressure 149/91 H Blood Pressure [Left Brachial artery] Blood Pressure 149/75 H 142/74 H [Left Radial artery] O2 Saturation 98 97 97 12/15/20 12/15/20 12/15/20 22:24 22:31 22:40 Temperature 36.9 C 36.3 C L Heart Rate 99 93 96 Heart Rate [ Brachial] Heart Rate [ Radial] Respiratory 12 13 18 Rate Blood Pressure 171/91 H 149/77 H 147/74 H Blood Pressure [Left Brachial artery] Blood Pressure [Left Radial artery] O2 Saturation 100 100 100 12/15/20 12/15/20 12/15/20 22:52 23:01 23:31 Temperature 37.0 C 37.3 C 37.1 C Heart Rate 94 Heart Rate [ 93 Brachial] Heart Rate [ 97 Radial] Respiratory 11 L 18 16 Rate Blood Pressure 127/85 H Blood Pressure 135/90 H [Left Brachial artery] Blood Pressure 144/68 H [Left Radial artery] O2 Saturation 98 100 99 12/16/20 12/16/20 12/16/20 00:31 01:29 05:00 Temperature 36.9 C 36.8 C 36.8 C Heart Rate Heart Rate [ Brachial] Heart Rate [ 68 108 H 92 Radial] Respiratory 20 20 18 Rate Blood Pressure Blood Pressure [Left Brachial artery] Blood Pressure 134/62 H 141/62 H 142/71 H [Left Radial artery] O2 Saturation 99 96 99 12/16/20 12/16/20 07:44 12:12 Temperature 36.6 C 36.6 C Heart Rate Heart Rate [ Brachial] Heart Rate [ 97 94 Radial] Respiratory 20 18 Rate Blood Pressure Blood Pressure [Left Brachial artery] Blood Pressure 147/72 H 157/76 H [Left Radial artery] O2 Saturation 98 99 Oxygen O2 Source Room air I&O (Last 24 Hrs): Intake and Output Totals x24h 12/14/20 12/15/20 12/16/20 23:59 23:59 23:59 Intake Total 4926.667 3210 2871.667 Output Total 850 Balance 4076.667 3210 2871.667 General: Alert, Oriented x3, Cooperative, No acute distress HEENT: Atraumatic Neck: Supple Lymphatic: no adenopathy Neuro: Alert, Non Focal, Oriented Times 3 Cardiovascular: Regular rate, Normal S1, Normal S2 Respiratory: Chest non-tender, No respiratory distress Abdomen: Normal bowel sounds, Soft, No tenderness Extremities: Normal pulses - Results Results: Laboratory Results WBC 17.4 x10^3/uL (4.8-10.8) H 12/16/20 05:05 RBC 4.53 10^6/uL (4.20-5.40) 12/16/20 05:05 Hgb 12.4 g/dL (12.0-16.0) 12/16/20 05:05 Hct 38.4 % (37.0-47.0) 12/16/20 05:05 MCV 84.8 fL (81.0-99.0) 12/16/20 05:05 MCH 27.4 pg (27.0-31.0) 12/16/20 05:05 MCHC 32.3 g/dL (32.0-36.0) 12/16/20 05:05 RDW 12.8 % (12.0-15.0) 12/16/20 05:05 Plt Count 491 10^3/uL (130-450) H 12/16/20 05:05 MPV 10.0 fL (7.9-10.8) 12/16/20 05:05 Neut # (Auto) 18.6 10^3/uL (1.5-6.6) H 12/13/20 20:51 Lymph # (Auto) 1.8 10^3/uL (1.5-3.5) 12/13/20 20:51 [place] # (Auto) 2.2 10^3/uL (0.0-1.0) H 12/13/20 20:51 Eos # (Auto) 0.1 10^3/uL (0.0-0.7) 12/13/20 20:51 Baso # (Auto) 0.1 10^3/uL (0.0-0.1) 12/13/20 20:51 Absolute Nucleated RBC 0.00 x10^3/uL 12/13/20 20:51 Band Neuts % (Manual) Not Reportable 12/13/20 20:51 Abnorm Lymph % (Manual) Not Reportable 12/13/20 20:51 Nucleated RBC % 0.0 /100WBC 12/13/20 20:51 Neutrophils # (Manual) Not Reportable 12/13/20 20:51 Lymphocytes # (Manual) Not Reportable 12/13/20 20:51 Monocytes # (Manual) Not Reportable 12/13/20 20:51 Eosinophils # (Manual) Not Reportable 12/13/20 20:51 Basophils # (Manual) Not Reportable 12/13/20 20:51 Differential Comment MANUAL=AUTO DIFF 12/13/20 20:51 Manual Slide Review Indicated 12/13/20 20:51 WBC Morphology NORMAL APPEARANCE (NORMAL) 12/13/20 20:51 Platelet Estimate NORMAL (130-450,000) (NORMAL) 12/13/20 20:51 Platelet Morphology NORMAL APPEARANCE (NORMAL) 12/13/20 20:51 RBC Morph Micro Appear NORMAL APPEARANCE (NORMAL) 12/13/20 20:51 PT 14.8 secs (9.9-12.6) H 12/13/20 20:51 INR 1.4 (0.8-1.2) H 12/13/20 20:51 APTT 27.0 secs (24.9-33.3) 12/13/20 20:51 Sodium 137 mmol/L (135-145) 12/16/20 05:05 Potassium 3.0 mmol/L (3.5-5.0) L 12/16/20 05:05 Chloride 99 mmol/L (101-111) L 12/16/20 05:05 Carbon Dioxide 26 mmol/L (21-32) 12/16/20 05:05 Anion Gap 12.0 (6-13) 12/16/20 05:05 BUN 7 mg/dL (6-20) 12/16/20 05:05 Creatinine 0.6 mg/dL (0.4-1.0) 12/16/20 05:05 Estimated GFR (MDRD) 106 (>89) 12/16/20 05:05 Glucose 110 mg/dL (70-100) H 12/16/20 05:05 Lactic Acid 0.9 mmol/L (0.5-2.2) 12/13/20 20:51 Calcium 8.8 mg/dL (8.5-10.3) 12/16/20 05:05 Total Bilirubin 0.8 mg/dL (0.2-1.0) 12/13/20 20:51 AST 24 IU/L (10-42) 12/13/20 20:51 ALT 51 IU/L (10-60) 12/13/20 20:51 Alkaline Phosphatase 130 IU/L (42-121) H 12/13/20 20:51 C-Reactive Protein 8.6 mg/dL (0-1.0) H 12/16/20 05:05 Total Protein 7.6 g/dL (6.7-8.2) 12/13/20 20:51 Albumin 3.2 g/dL (3.2-5.5) 12/13/20 20:51 Globulin 4.4 g/dL (2.1-4.2) H 12/13/20 20:51 Albumin/Globulin Ratio 0.7 (1.0-2.2) L 12/13/20 20:51 Lipase 17 U/L (22-51) L 12/13/20 20:51 Serum HCG, Qual NEGATIVE 12/14/20 11:45 Urine Color YELLOW 12/13/20 21:21 Urine Clarity SL. CLOUDY (CLEAR) 12/13/20 21:21 Urine pH 7.0 PH (5.0-7.5) 12/13/20 21:21 Ur Specific [place] 1.015 (1.002-1.030) 12/13/20 21:21 Urine Protein NEGATIVE mg/dL (NEGATIVE) 12/13/20 21:21 Urine Glucose (UA) NEGATIVE mg/dL (NEGATIVE) 12/13/20 21:21 Urine Ketones >=80 mg/dL (NEGATIVE) H 12/13/20 21:21 Urine Occult Blood TRACE-INTA (NEGATIVE) 12/13/20 21:21 Urine Nitrite POSITIVE (NEGATIVE) H 12/13/20 21:21 Urine Bilirubin NEGATIVE (NEGATIVE) 12/13/20 21:21 Urine Urobilinogen 4 E.U./dL (NORMAL) H 12/13/20 21:21 Ur Leukocyte Esterase NEGATIVE (NEGATIVE) 12/13/20 21:21 Urine RBC 0-5 /HPF (0-5) 12/13/20 21:21 Urine WBC 4-5 /HPF (0-5) 12/13/20 21:21 Ur Squamous Epith Cells FEW Squamous (<= Few) 12/13/20 21:21 Urine Bacteria Many /HPF (None Seen) H 12/13/20 21:21 Ur Microscopic Review INDICATED 12/13/20 21:21 Urine Culture Comments INDICATED 12/13/20 21:21 Nasal Adenovirus (PCR) NOT DETECTED 12/13/20 21:45 Nasal B. parapertussis DNA (PCR) NOT DETECTED 12/13/20 21:45 Nasal Coronavir 229E PCR NOT DETECTED 12/13/20 21:45 Nasal Coronavir HKU1 PCR NOT DETECTED 12/13/20 21:45 Nasal Coronavir NL63 PCR NOT DETECTED 12/13/20 21:45 Nasal Coronavir OC43 PCR NOT DETECTED 12/13/20 21:45 Nasal Enterovir/Rhinovir PCR NOT DETECTED 12/13/20 21:45 Nasal Influenza B PCR NOT DETECTED 12/13/20 21:45 Nasal Influenza A PCR NOT DETECTED 12/13/20 21:45 Nasal Parainfluen 1 PCR NOT DETECTED 12/13/20 21:45 Nasal Parainfluen 2 PCR NOT DETECTED 12/13/20 21:45 Nasal Parainfluen 3 PCR NOT DETECTED 12/13/20 21:45 Nasal Parainfluen 4 PCR NOT DETECTED 12/13/20 21:45 Nasal RSV (PCR) NOT DETECTED 12/13/20 21:45 Nasal Screen MRSA (PCR) NEGATIVE (NEGATIVE) 12/13/20 22:00 Nasal B.pertussis DNA PCR NOT DETECTED 12/13/20 21:45 Nasal C.pneumoniae (PCR) NOT DETECTED 12/13/20 21:45 [place] Human Metapneumo PCR NOT DETECTED 12/13/20 21:45 Nasal M.pneumoniae (PCR) NOT DETECTED 12/13/20 21:45 Nasal SARS-CoV-2 (PCR) NOT DETECTED 12/13/20 21:45 Last Dose Date UNK 12/16/20 08:33 Last Dose Time UNK 12/16/20 08:33 Vancomycin Trough 8.3 ug/mL (10.0-20.0) L 12/16/20 08:33 Sepsis Event Note (H) - Evaluation Current Stage of Sepsis: Ruled out ABX Reporting Has patient been on IV antibiotics over the past 48 hours?: Yes Current Medications - Current Medications Current Medications: Active Medications Acetaminophen (Acetaminophen 325 Mg Tablet) 650 mg PO Q4HR PRN PRN Reason: Pain 1 to 4 Last Admin: 12/16/20 13:40 Dose: 650 mg Documented by: Amitriptyline HCl (Amitriptyline 25 Mg Tablet) 100 mg PO QPM [facility] Last Admin: 12/15/20 23:08 Dose: 100 mg Documented by: Enoxaparin Sodium (Enoxaparin 40 Mg/0.4 Ml Syringe) 40 mg SUBQ DAILY [facility] Last Admin: 12/16/20 08:25 Dose: 40 mg Documented by: Gabapentin (Gabapentin 100 Mg Capsule) 100 mg PO Q8H [facility] Last Admin: 12/16/20 08:25 Dose: 100 mg Documented by: Gabapentin (Gabapentin 300 Mg Capsule) 600 mg PO TID [facility] Last Admin: 12/16/20 13:41 Dose: 600 mg Documented by: Hydrochlorothiazide (Hydrochlorothiazide 25 Mg Tablet) 25 mg PO DAILY [facility] Last Admin: 12/16/20 08:25 Dose: 25 mg Documented by: Clindamycin Phosphate (Cleocin 600 Mg/50 Ml) 50 mls @ 100 mls/hr IV Q8HR [facility] Last Admin: 12/16/20 13:41 Dose: 100 mls/hr Documented by: Potassium Chloride/Dextrose/Sod Cl (D5.45ns W/20 Meq Kcl) 1,000 mls @ 100 mls/hr IV .Q10H [facility] Stop: 12/16/20 17:59 Last Infusion: 12/16/20 12:25 Dose: 100 mls/hr Documented by: Vancomycin HCl 1.75 gm/ Sodium (Chloride) 500 mls @ 250 mls/hr IV Q8H [facility] Last Infusion: 12/16/20 12:20 Dose: Infused Documented by: Ibuprofen (Ibuprofen 600 Mg Tablet) 600 mg PO Q6HR PRN PRN Reason: Pain 1 to 4 Last Admin: 12/14/20 15:31 Dose: 600 mg Documented by: Methocarbamol (Methocarbamol 500 Mg Tablet) 500 mg PO Q6H PRN PRN Reason: Muscle Spasms Last Admin: 12/15/20 11:29 Dose: 500 mg Documented by: Morphine Sulfate (Morphine 2 Mg/Ml Carpuject) 2 mg IVP Q2HR PRN PRN Reason: PAIN Last Admin: 12/15/20 17:41 Dose: 2 mg Documented by: Multi-Ingredient Mouthwash/Gargle (Gi Cocktail 120 Ml Bottle) 30 ml PO Q4H PRN PRN Reason: Abdominal Pain Ondansetron HCl (Ondansetron Odt 4 Mg Tablet) 4 mg TL Q6HR PRN PRN Reason: Nausea / Vomiting Last Admin: 12/14/20 21:31 Dose: 4 mg Documented by: Oxycodone HCl (Oxycodone 5 Mg Tablet) 5 mg PO Q4HR PRN PRN Reason: Pain 5 to 7 Last Admin: 12/16/20 13:41 Dose: 5 mg Documented by: Pantoprazole Sodium (Pantoprazole 40 Mg Tablet) 40 mg PO QDAC [facility] Last Admin: 12/16/20 09:29 Dose: 40 mg Documented by: Saccharomyces Boulardii (Saccharomyces Boulardii 250 Mg Capsule) 500 mg PO BIDWM [facility] Last Admin: 12/16/20 07:56 Dose: 500 mg Documented by: Sodium Chloride (Sodium Chloride Flush 0.9% 10 Ml Syringe) 10 ml IVP PRN PRN PRN Reason: NEEDED PER PROVIDER ORDERS Last Admin: 12/15/20 17:43 Dose: 10 ml Documented by: Sodium Chloride (Sodium Chloride Flush 0.9% 10 Ml Syringe) 10 ml IVP 0100,0900,1700 [facility] Last Admin: 12/16/20 08:26 Dose: 10 ml Documented by: Amitriptyline HCl 100 mg PO QPM 12/14/20 Gabapentin [Neurontin] 600 mg PO BID 12/14/20 Gabapentin [Neurontin] 800 mg PO BID 12/14/20 hydroCHLOROthiazide [Hydrodiuril] 25 mg PO DAILY 12/14/20 methocarbamoL [Robaxin] 500 mg PO Q6H PRN 12/14/20
[2020-12-16] MEDS: GI COCKTAIL 120 ML BOTTLE PO PRN (16:42)
[2020-12-16] MEDS: methocarbamoL 500 MG TABLET PO PRN ×2 (16:43→23:35)
[2020-12-16] MEDS: AMITRIPTYLINE 25 MG TABLET PO SCH (21:27)
[2020-12-17] MEDS: VANCOMYCIN INJ 1.75 GM in SODIUM CHLORIDE 0.9% 500 ML IV SCH (01:33)
[2020-12-17] MEDS: oxyCODONE 5 MG TABLET PO PRN ×6 (01:33→23:06)
[2020-12-17] MEDS: ACETAMINOPHEN 325 MG TABLET PO PRN ×6 (01:33→23:06)
[2020-12-17] MEDS: CLINDAMYCIN 600 MG/50 ML 50 ML IV SCH (05:42)
[2020-12-17 06:33] LABS: BASOPHILS # (AUTO) 0.1 10^3/uL (0.0-0.1); BASOPHILS % (AUTO) 0.6 %; EOSINOPHILS # (AUTO) 0.3 10^3/uL (0.0-0.7); EOSINOPHILS % (AUTO) 2.1 %; HCT - HEMATOCRIT 35.2 % (37.0-47.0); HGB - HEMOGLOBIN 11.6 g/dL (12.0-16.0); LYMPHOCYTES # (AUTO) 2.9 10^3/uL (1.5-3.5); LYMPHOCYTES % (AUTO) 20.8 %; MEAN CORPUSCULAR HEMOGLOBIN 27.8 pg (27.0-31.0); MEAN CORPUSCULAR VOLUME 84.4 fL (81.0-99.0); MEAN PLATELET VOLUME 9.9 fL (7.9-10.8); MONOCYTES # (AUTO) 1.1 10^3/uL (0.0-1.0); MONOCYTES % (AUTO) 7.5 %; NEUTROPHILS # (AUTO) 9.2 10^3/uL (1.5-6.6); NEUTROPHILS % (AUTO) 65.6 %; PLT - PLATELET COUNT 455 10^3/uL (130-450); RED BLOOD COUNT 4.17 10^6/uL (4.20-5.40); WHITE BLOOD COUNT 14.1 x10^3/uL (4.8-10.8)
[2020-12-17] MEDS: PANTOPRAZOLE 40 MG TABLET PO SCH (06:39)
[2020-12-17] MEDS: GABAPENTIN 300 MG CAPSULE PO SCH ×3 (06:39→21:36)
[2020-12-17 06:51] LABS: CALCIUM 8.9 mg/dL (8.5-10.3); CREATININE 0.5 mg/dL (0.4-1.0); POTASSIUM 3.3 mmol/L (3.5-5.0)
[2020-12-17] MEDS ORDERED: POTASSIUM CHLORIDE 20 MEQ TABLET PO ONE (08:00)
[2020-12-17] MEDS: SACCHAROMYCES BOULARDII 250 MG CAPSULE PO SCH ×2 (10:16→17:16)
[2020-12-17] MEDS: hydroCHLOROthiazide 25 MG TABLET PO SCH (10:17)
[2020-12-17] MEDS: ENOXAPARIN 40 MG/0.4 ML SYRINGE SUBQ SCH (10:20)
[2020-12-17] MEDS: GABAPENTIN 100 MG CAPSULE PO SCH ×3 (10:20→23:38)
[2020-12-17] MEDS: SODIUM CHLORIDE FLUSH 0.9% 10 ML SYRINGE IVP SCH ×3 (10:22→23:38)
[2020-12-17] MEDS ORDERED: CEFEPIME 2 GM in SODIUM CHLORIDE 0.9% MINIBAG 100 ML IV SCH (12:00)
[2020-12-17] MEDS: AMPICILLIN/SULBACTAM 3 GM in SODIUM CHLORIDE 0.9% MINIBAG 100 ML IV SCH ×3 (12:01→23:38)
[2020-12-17] MEDS: SODIUM CHLORIDE FLUSH 0.9% 10 ML SYRINGE IVP PRN ×2 (12:01→18:47)
[2020-12-17] MEDS: GI COCKTAIL 120 ML BOTTLE PO PRN (12:11)
[2020-12-17] MEDS: methocarbamoL 500 MG TABLET PO PRN ×2 (12:16→18:45)
--- NOTE | 2020-12-17 15:15 | PROVIDER PROGRESS NOTE ---
Assessment/Plan - Problem List (1) Abscess Assessment/Plan: 12/17 good improved. tenderness around abscess is reduced. pain is reduced. WBC is down to 14. pt feel better. wound culture show staph aureus(MSSA), we will hold Vancomycin and continue Unasy, continue vac 12/16 Patient had I&D done yesterday, now with wound VAC placement. wound culture was sent out again and pending. continue antibiotics, Vac care. followup with surgeon's recommendation. 12/15, surgeon plan to have I/D for pt, we will followup. US reveals no evidence to suggest to have DVT in right leg. We will continue intravenous antibiotics, patient WBC is down to 16 from 23. wound culture show staph Aureus. CT reveals big size of abscess on the frontier of right lower extremity. Consult with the surgeon, n.p.o. after midnight, plan to have I/D on tomorrow morning. Continue antibiotics, intravenous IV fluids, pain control (2) Cellulitis 12/17 erythema and swelling and tenderness are reduced, WBC is down to 14, CRP is trended down, Continue antibiotics Unasyn. 12/16 Patient report the pain is good control, Patient also had I&D done yesterday. WBC is slightly elevated, Likely reactive and stress response. Previous wound culture show staph aureus. Continue antibiotics. 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 Erythema and swelling are reduced. Blood culture showed negative for bacteremia. WBC is down to 16 from 23 on yesterday. Wound culture show positive staph aureus. We will continue intravenous antibiotics, Continue probiotics. Improved significantly, Erythema is reduced, patient reported pain is better Controlled. But the WBC has slightly elevated. We will continue antibiotics,Follow-up blood culture and wound culture. (3) Fibromyalgia Conclusion/Plan: stable, Resume home medications (4) Hypertension Conclusion/Plan: stable, Resume home medications, HCTZ (5) SIRS (systemic inflammatory response syndrome) Conclusion/Plan: improved. Tachycardia is resolved. blood pressure is good control and lactic aci d is negative. Continue antibiotic treatment And intravenous IV fluids (6)UTI 12/17 UA culture reveals ESBL and sensitive to Unasyn, continue Unasyn Your culture show positive for E. coli, Urinalysis suggesting UTI. Patient reported Asymptomatic, patient denies urinary urgency or dysuria. Patient is already in antibiotic treatment For her skin infection. (7)Obesity Patient BMI 52, Advised the patient lost weight, Healthy lifestyle (8)GERD 12/17 great improved. pt has no complain GI upset or burning. continue Protonix, GI cocktail as needed. 12/16 Patient complain of stomach upset, burning. Add Protonix, GI cocktail as needed - Current Meds Current Meds: Current Medications Generic Name Dose Route Start Last Admin Trade Name Freq PRN Reason Stop Dose Admin Acetaminophen 650 mg 12/13/20 21:39 12/17/20 14:20 Acetaminophen 325 Mg Tablet PO 650 mg Q4HR PRN Administration Pain 1 to 4 Amitriptyline HCl 100 mg 12/14/20 21:00 12/16/20 21:27 Amitriptyline 25 Mg Tablet PO 25 mg QPM DANISH Administration Enoxaparin Sodium 40 mg 12/14/20 09:00 12/17/20 10:20 Enoxaparin 40 Mg/0.4 Ml Syringe SUBQ 40 mg DAILY DANISH Administration Gabapentin 100 mg 12/14/20 08:30 12/17/20 10:20 Gabapentin 100 Mg Capsule PO 100 mg Q8H DANISH Administration Gabapentin 600 mg 12/14/20 18:00 12/17/20 14:20 Gabapentin 300 Mg Capsule PO 600 mg TID DANISH Administration Hydrochlorothiazide 25 mg 12/15/20 09:00 12/17/20 10:17 Hydrochlorothiazide 25 Mg Tablet PO 25 mg DAILY DANISH Administration Ampicillin Sodium/Sulbactam 100 mls @ 200 mls/hr 12/17/20 12:00 12/17/20 1 3:06 Sodium 3 gm/ Sodium Chloride IV Infused Q6HR DANISH Infusion Ibuprofen 600 mg 12/13/20 21:39 12/14/20 15:31 Ibuprofen 600 Mg Tablet PO 600 mg Q6HR PRN Administration Pain 1 to 4 Methocarbamol 500 mg 12/14/20 16:55 12/17/20 12:16 Methocarbamol 500 Mg Tablet PO 500 mg Q6H PRN Administration Muscle Spasms Morphine Sulfate 2 mg 12/14/20 16:51 12/15/20 17:41 Morphine 2 Mg/Ml Carpuject IVP 2 mg Q2HR PRN Administration PAIN Multi-Ingredient Mouthwash/Gargle 30 ml 12/16/20 09:12 12/17/20 12:11 Gi Cocktail 120 Ml Bottle PO 15 ml Q4H PRN Administration Abdominal Pain Ondansetron HCl 4 mg 12/13/20 21:39 12/14/20 21:31 Ondansetron Odt 4 Mg Tablet TL 4 mg Q6HR PRN Administration Nausea / Vomiting Oxycodone HCl 5 mg 12/13/20 21:39 12/17/20 14:21 Oxycodone 5 Mg Tablet PO 5 mg Q4HR PRN Administration Pain 5 to 7 Pantoprazole Sodium 40 mg 12/16/20 10:00 12/17/20 06:39 Pantoprazole 40 Mg Tablet PO 40 mg QDAC DANISH Administration Saccharomyces Boulardii 500 mg 12/14/20 08:24 12/17/20 10:16 Saccharomyces Boulardii 250 Mg Capsule PO 500 mg BIDWM DANISH Administration Sodium Chloride 10 ml 12/13/20 21:39 12/17/20 12:01 Sodium Chloride Flush 0.9% 10 Ml Syringe IVP 10 ml PRN PRN Administration NEEDED PER PROVIDER ORDERS Sodium Chloride 10 ml 12/14/20 01:00 12/17/20 10:22 Sodium Chloride Flush 0.9% 10 Ml Syringe IVP 10 ml 0100,0900,1700 DANISH Administration - Lab Result Fish Bone Diagrams: 12/17/20 05:57 12/17/20 05:57 - Additional Planning My Orders: My Active Orders 12/17/20 12:00 Ampicillin/Sulbactam [Unasyn] 3 gm Sodium Chloride 0.9% Minibag [Normal Saline 0.9% Minibag] 100 ml IV Q6HR 12/18/20 05:00 BMP - BASIC METABOLIC PANEL [CHEM] DAILYLAB CBC - COMP BLD CT W/AUTO DIFF [HEME] DAILYLAB CRP - C-REACTIVE PROTEIN [CHEM] DAILYLAB 12/19/20 05:00 BMP - BASIC METABOLIC PANEL [CHEM] DAILYLAB CBC - COMP BLD CT W/AUTO DIFF [HEME] DAILYLAB CRP - C-REACTIVE PROTEIN [CHEM] DAILYLAB 12/20/20 05:00 BMP - BASIC METABOLIC PANEL [CHEM] DAILYLAB CBC - COMP BLD CT W/AUTO DIFF [HEME] DAILYLAB CRP - C-REACTIVE PROTEIN [CHEM] DAILYLAB 12/21/20 05:00 BMP - BASIC METABOLIC PANEL [CHEM] DAILYLAB CBC - COMP BLD CT W/AUTO DIFF [HEME] DAILYLAB CRP - C-REACTIVE PROTEIN [CHEM] DAILYLAB 12/22/20 05:00 CRP - C-REACTIVE PROTEIN [CHEM] DAILYLAB Subjective - Subjective Patient Reports: Feeling Better Objective Vital Signs: Vital Signs - 24 hr 12/16/20 12/16/20 12/17/20 15:32 20:03 00:11 Temperature 36.5 C 36.8 C 36.4 C L Heart Rate [ Brachial] Heart Rate [ 90 98 94 Radial] Respiratory 18 18 18 Rate Blood Pressure 136/67 H 142/67 H 145/75 H [Left Radial artery] O2 Saturation 99 98 97 12/17/20 12/17/20 12/17/20 05:00 07:26 13:00 Temperature 36.5 C 36.6 C 36.5 C Heart Rate [ 102 H Brachial] Heart Rate [ 90 94 Radial] Respiratory 18 20 18 Rate Blood Pressure 139/68 H 146/70 H 160/79 H [Left Radial artery] O2 Saturation 97 97 98 Oxygen O2 Source Room air I&O (Last 24 Hrs): Intake and Output Totals x24h 12/15/20 12/16/20 12/17/20 23:59 23:59 23:59 Intake Total 3210 5110.000 1350 Balance 3210 5110.000 1350 General: Alert, Oriented x3, Cooperative, No acute distress HEENT: Atraumatic, PERRLA Neck: Supple Lymphatic: no adenopathy Neuro: Alert, Non Focal, Oriented Times 3 Cardiovascular: Regular rate, Normal S1, Normal S2 Respiratory: Chest non-tender, No respiratory distress Abdomen: Normal bowel sounds, Soft Extremities: Normal pulses - Results Results: Laboratory Results WBC 14.1 x10^3/uL (4.8-10.8) H 12/17/20 05:57 RBC 4.17 10^6/uL (4.20-5.40) L 12/17/20 05:57 Hgb 11.6 g/dL (12.0-16.0) L 12/17/20 05:57 Hct 35.2 % (37.0-47.0) L 12/17/20 05:57 MCV 84.4 fL (81.0-99.0) 12/17/20 05:57 MCH 27.8 pg (27.0-31.0) 12/17/20 05:57 MCHC 33.0 g/dL (32.0-36.0) 12/17/20 05:57 RDW 13.0 % (12.0-15.0) 12/17/20 05:57 Plt Count 455 10^3/uL (130-450) H 12/17/20 05:57 MPV 9.9 fL (7.9-10.8) 12/17/20 05:57 Neut # (Auto) 9.2 10^3/uL (1.5-6.6) H 12/17/20 05:57 Lymph # (Auto) 2.9 10^3/uL (1.5-3.5) 12/17/20 05:57 [place] # (Auto) 1.1 10^3/uL (0.0-1.0) H 12/17/20 05:57 Eos # (Auto) 0.3 10^3/uL (0.0-0.7) 12/17/20 05:57 Baso # (Auto) 0.1 10^3/uL (0.0-0.1) 12/17/20 05:57 Absolute Nucleated RBC 0.00 x10^3/uL 12/17/20 05:57 Band Neuts % (Manual) Not Reportable 12/13/20 20:51 Abnorm Lymph % (Manual) Not Reportable 12/13/20 20:51 Nucleated RBC % 0.0 /100WBC 12/17/20 05:57 Neutrophils # (Manual) Not Reportable 12/13/20 20:51 Lymphocytes # (Manual) Not Reportable 12/13/20 20:51 Monocytes # (Manual) Not Reportable 12/13/20 20:51 Eosinophils # (Manual) Not Reportable 12/13/20 20:51 Basophils # (Manual) Not Reportable 12/13/20 20:51 Differential Comment MANUAL=AUTO DIFF 12/13/20 20:51 Manual Slide Review Indicated 12/13/20 20:51 WBC Morphology NORMAL APPEARANCE (NORMAL) 12/13/20 20:51 Platelet Estimate NORMAL (130-450,000) (NORMAL) 12/13/20 20:51 Platelet Morphology NORMAL APPEARANCE (NORMAL) 12/13/20 20:51 RBC Morph Micro Appear NORMAL APPEARANCE (NORMAL) 12/13/20 20:51 PT 14.8 secs (9.9-12.6) H 12/13/20 20:51 INR 1.4 (0.8-1.2) H 12/13/20 20:51 APTT 27.0 secs (24.9-33.3) 12/13/20 20:51 Sodium 137 mmol/L (135-145) 12/17/20 05:57 Potassium 3.3 mmol/L (3.5-5.0) L 12/17/20 05:57 Chloride 100 mmol/L (101-111) L 12/17/20 05:57 Carbon Dioxide 25 mmol/L (21-32) 12/17/20 05:57 Anion Gap 12.0 (6-13) 12/17/20 05:57 BUN 6 mg/dL (6-20) 12/17/20 05:57 Creatinine 0.5 mg/dL (0.4-1.0) 12/17/20 05:57 Estimated GFR (MDRD) 131 (>89) 12/17/20 05:57 Glucose 117 mg/dL (70-100) H 12/17/20 05:57 Lactic Acid 0.9 mmol/L (0.5-2.2) 12/13/20 20:51 Calcium 8.9 mg/dL (8.5-10.3) 12/17/20 05:57 Total Bilirubin 0.8 mg/dL (0.2-1.0) 12/13/20 20:51 AST 24 IU/L (10-42) 12/13/20 20:51 ALT 51 IU/L (10-60) 12/13/20 20:51 Alkaline Phosphatase 130 IU/L (42-121) H 12/13/20 20:51 C-Reactive Protein 4.0 mg/dL (0-1.0) H 12/17/20 05:57 Total Protein 7.6 g/dL (6.7-8.2) 12/13/20 20:51 Albumin 3.2 g/dL (3.2-5.5) 12/13/20 20:51 Globulin 4.4 g/dL (2.1-4.2) H 12/13/20 20:51 Albumin/Globulin Ratio 0.7 (1.0-2.2) L 12/13/20 20:51 Lipase 17 U/L (22-51) L 12/13/20 20:51 Serum HCG, Qual NEGATIVE 12/14/20 11:45 Urine Color YELLOW 12/13/20 21:21 Urine Clarity SL. CLOUDY (CLEAR) 12/13/20 21:21 Urine pH 7.0 PH (5.0-7.5) 12/13/20 21:21 Ur Specific [place] 1.015 (1.002-1.030) 12/13/20 21:21 Urine Protein NEGATIVE mg/dL (NEGATIVE) 12/13/20 21:21 Urine Glucose (UA) NEGATIVE mg/dL (NEGATIVE) 12/13/20 21:21 Urine Ketones >=80 mg/dL (NEGATIVE) H 12/13/20 21:21 Urine Occult Blood TRACE-INTA (NEGATIVE) 12/13/20 21:21 Urine Nitrite POSITIVE (NEGATIVE) H 12/13/20 21:21 Urine Bilirubin NEGATIVE (NEGATIVE) 12/13/20 21:21 Urine Urobilinogen 4 E.U./dL (NORMAL) H 12/13/20 21:21 Ur Leukocyte Esterase NEGATIVE (NEGATIVE) 12/13/20 21:21 Urine RBC 0-5 /HPF (0-5) 12/13/20 21:21 Urine WBC 4-5 /HPF (0-5) 12/13/20 21:21 Ur Squamous Epith Cells FEW Squamous (<= Few) 12/13/20 21:21 Urine Bacteria Many /HPF (None Seen) H 12/13/20 21:21 Ur Microscopic Review INDICATED 12/13/20 21:21 Urine Culture Comments INDICATED 12/13/20 21:21 Nasal Adenovirus (PCR) NOT DETECTED 12/13/20 21:45 Nasal B. parapertussis DNA (PCR) NOT DETECTED 12/13/20 21:45 Nasal Coronavir 229E PCR NOT DETECTED 12/13/20 21:45 Nasal Coronavir HKU1 PCR NOT DETECTED 12/13/20 21:45 Nasal Coronavir NL63 PCR NOT DETECTED 12/13/20 21:45 Nasal Coronavir OC43 PCR NOT DETECTED 12/13/20 21:45 Nasal Enterovir/Rhinovir PCR NOT DETECTED 12/13/20 21:45 Nasal Influenza B PCR NOT DETECTED 12/13/20 21:45 Nasal Influenza A PCR NOT DETECTED 12/13/20 21:45 Nasal Parainfluen 1 PCR NOT DETECTED 12/13/20 21:45 Nasal Parainfluen 2 PCR NOT DETECTED 12/13/20 21:45 Nasal Parainfluen 3 PCR NOT DETECTED 12/13/20 21:45 Nasal Parainfluen 4 PCR NOT DETECTED 12/13/20 21:45 Nasal RSV (PCR) NOT DETECTED 12/13/20 21:45 Nasal Screen MRSA (PCR) NEGATIVE (NEGATIVE) 12/13/20 22:00 Nasal B.pertussis DNA PCR NOT DETECTED 12/13/20 21:45 Nasal C.pneumoniae (PCR) NOT DETECTED 12/13/20 21:45 [place] Human Metapneumo PCR NOT DETECTED 12/13/20 21:45 Nasal M.pneumoniae (PCR) NOT DETECTED 12/13/20 21:45 Nasal SARS-CoV-2 (PCR) NOT DETECTED 12/13/20 21:45 Last Dose Date UNK 12/16/20 08:33 Last Dose Time UNK 12/16/20 08:33 Vancomycin Trough 8.3 ug/mL (10.0-20.0) L 12/16/20 08:33 Sepsis Event Note (H) - Evaluation Current Stage of Sepsis: Ruled out ABX Reporting Has patient been on IV antibiotics over the past 48 hours?: Yes Current Medications - Current Medications Current Medications: Active Medications Acetaminophen (Acetaminophen 325 Mg Tablet) 650 mg PO Q4HR PRN PRN Reason: Pain 1 to 4 Last Admin: 12/17/20 14:20 Dose: 650 mg Documented by: Amitriptyline HCl (Amitriptyline 25 Mg Tablet) 100 mg PO QPM [facility] Last Admin: 12/16/20 21:27 Dose: 25 mg Documented by: Enoxaparin Sodium (Enoxaparin 40 Mg/0.4 Ml Syringe) 40 mg SUBQ DAILY [facility] Last Admin: 12/17/20 10:20 Dose: 40 mg Documented by: Gabapentin (Gabapentin 100 Mg Capsule) 100 mg PO Q8H [facility] Last Admin: 12/17/20 10:20 Dose: 100 mg Documented by: Gabapentin (Gabapentin 300 Mg Capsule) 600 mg PO TID [facility] Last Admin: 12/17/20 14:20 Dose: 600 mg Documented by: Hydrochlorothiazide (Hydrochlorothiazide 25 Mg Tablet) 25 mg PO DAILY [facility] Last Admin: 12/17/20 10:17 Dose: 25 mg Documented by: Ampicillin Sodium/Sulbactam (Sodium 3 gm/ Sodium Chloride) 100 mls @ 200 mls/hr IV Q6HR [facility] Last Infusion: 12/17/20 13:06 Dose: Infused Documented by: Ibuprofen (Ibuprofen 600 Mg Tablet) 600 mg PO Q6HR PRN PRN Reason: Pain 1 to 4 Last Admin: 12/14/20 15:31 Dose: 600 mg Documented by: Methocarbamol (Methocarbamol 500 Mg Tablet) 500 mg PO Q6H PRN PRN Reason: Muscle Spasms Last Admin: 12/17/20 12:16 Dose: 500 mg Documented by: Morphine Sulfate (Morphine 2 Mg/Ml Carpuject) 2 mg IVP Q2HR PRN PRN Reason: PAIN Last Admin: 12/15/20 17:41 Dose: 2 mg Documented by: Multi-Ingredient Mouthwash/Gargle (Gi Cocktail 120 Ml Bottle) 30 ml PO Q4H PRN PRN Reason: Abdominal Pain Last Admin: 12/17/20 12:11 Dose: 15 ml Documented by: Ondansetron HCl (Ondansetron Odt 4 Mg Tablet) 4 mg TL Q6HR PRN PRN Reason: Nausea / Vomiting Last Admin: 12/14/20 21:31 Dose: 4 mg Documented by: Oxycodone HCl (Oxycodone 5 Mg Tablet) 5 mg PO Q4HR PRN PRN Reason: Pain 5 to 7 Last Admin: 12/17/20 14:21 Dose: 5 mg Documented by: Pantoprazole Sodium (Pantoprazole 40 Mg Tablet) 40 mg PO QDAC [facility] Last Admin: 12/17/20 06:39 Dose: 40 mg Documented by: Saccharomyces Boulardii (Saccharomyces Boulardii 250 Mg Capsule) 500 mg PO BIDWM [facility] Last Admin: 12/17/20 10:16 Dose: 500 mg Documented by: Sodium Chloride (Sodium Chloride Flush 0.9% 10 Ml Syringe) 10 ml IVP PRN PRN PRN Reason: NEEDED PER PROVIDER ORDERS Last Admin: 12/17/20 12:01 Dose: 10 ml Documented by: Sodium Chloride (Sodium Chloride Flush 0.9% 10 Ml Syringe) 10 ml IVP 0100,0900,1700 [facility] Last Admin: 12/17/20 10:22 Dose: 10 ml Documented by: Amitriptyline HCl 100 mg PO QPM 12/14/20 Gabapentin [Neurontin] 600 mg PO BID 12/14/20 Gabapentin [Neurontin] 800 mg PO BID 12/14/20 hydroCHLOROthiazide [Hydrodiuril] 25 mg PO DAILY 12/14/20 methocarbamoL [Robaxin] 500 mg PO Q6H PRN 12/14/20
[2020-12-17] MEDS: AMITRIPTYLINE 25 MG TABLET PO SCH (21:36)
[2020-12-18] MEDS: methocarbamoL 500 MG TABLET PO PRN ×3 (00:23→16:12)
[2020-12-18] MEDS: ACETAMINOPHEN 325 MG TABLET PO PRN ×5 (05:18→22:20)
[2020-12-18] MEDS: oxyCODONE 5 MG TABLET PO PRN ×5 (05:19→22:20)
[2020-12-18] MEDS: AMPICILLIN/SULBACTAM 3 GM in SODIUM CHLORIDE 0.9% MINIBAG 100 ML IV SCH ×3 (05:33→17:30)
[2020-12-18] MEDS: GABAPENTIN 300 MG CAPSULE PO SCH ×3 (05:33→22:20)
[2020-12-18] MEDS: PANTOPRAZOLE 40 MG TABLET PO SCH (05:34)
[2020-12-18] MEDS: GABAPENTIN 100 MG CAPSULE PO SCH ×2 (07:50→16:12)
[2020-12-18] MEDS: SODIUM CHLORIDE FLUSH 0.9% 10 ML SYRINGE IVP SCH ×2 (07:50→16:14)
[2020-12-18] MEDS: ENOXAPARIN 40 MG/0.4 ML SYRINGE SUBQ SCH (07:50)
[2020-12-18] MEDS: hydroCHLOROthiazide 25 MG TABLET PO SCH (07:50)
[2020-12-18] MEDS: SACCHAROMYCES BOULARDII 250 MG CAPSULE PO SCH ×2 (07:50→16:14)
[2020-12-18 08:18] LABS: BASOPHILS # (AUTO) 0.1 10^3/uL (0.0-0.1); BASOPHILS % (AUTO) 0.5 %; EOSINOPHILS # (AUTO) 0.3 10^3/uL (0.0-0.7); EOSINOPHILS % (AUTO) 2.1 %; HCT - HEMATOCRIT 37.3 % (37.0-47.0); LYMPHOCYTES # (AUTO) 3.1 10^3/uL (1.5-3.5); MEAN CORPUSCULAR HEMOGLOBIN 27.3 pg (27.0-31.0); MEAN CORPUSCULAR HGB CONC 32.2 g/dL (32.0-36.0); MEAN CORPUSCULAR VOLUME 84.8 fL (81.0-99.0); MEAN PLATELET VOLUME 9.8 fL (7.9-10.8); MONOCYTES # (AUTO) 0.9 10^3/uL (0.0-1.0); MONOCYTES % (AUTO) 6.1 %; NEUTROPHILS # (AUTO) 9.9 10^3/uL (1.5-6.6); PLT - PLATELET COUNT 460 10^3/uL (130-450); WHITE BLOOD COUNT 14.8 x10^3/uL (4.8-10.8)
[2020-12-18 08:34] LABS: CALCIUM 8.9 mg/dL (8.5-10.3); CREATININE 0.6 mg/dL (0.4-1.0); CRP - C-REACTIVE PROTEIN 1.9 mg/dL (0-1.0); POTASSIUM 3.5 mmol/L (3.5-5.0)
--- NOTE | 2020-12-18 12:53 | PROVIDER PROGRESS NOTE ---
Subjective - Prog Note Date Prog Note Date: 12/18/20 - Subjective Pt reports feeling: Improved (feeling better) Objective - Vital Signs/Intake & Output Vital Signs: Vital Signs x48h Temp Pulse Resp BP Pulse Ox 12/18/20 12:32 36.7 C 89 17 142/67 H 94 12/18/20 08:47 36.5 C 87 18 141/80 H 95 12/18/20 05:00 36.8 C 100 18 147/72 H 96 Intake & Output: Intake & Output 12/15/20 12/16/20 12/17/20 12/18/20 23:59 23:59 23:59 23:59 Intake Total 3210 5110.000 1690 660 Balance 3210 5110.000 1690 660 - Objective General Appearance: positive: No acute distress, Alert Respiratory: positive: No respiratory distress Abdomen: positive: No distention Extremities: positive: Other (wound vac present. erythema improved) - Lab Results Fish Bones: 12/18/20 07:10 12/18/20 07:10 Other Labs: Lab Results x24hrs 12/18/20 12/18/20 Range/Units 07:10 07:10 WBC 14.8 H (4.8-10.8) x10^3/uL RBC 4.40 (4.20-5.40) 10^6/uL Hgb 12.0 (12.0-16.0) g/dL Hct 37.3 (37.0-47.0) % MCV 84.8 (81.0-99.0) fL MCH 27.3 (27.0-31.0) pg MCHC 32.2 (32.0-36.0) g/dL RDW 13.0 (12.0-15.0) % Plt Count 460 H (130-450) 10^3/uL MPV 9.8 (7.9-10.8) fL Neut # (Auto) 9.9 H (1.5-6.6) 10^3/uL Lymph # (Auto) 3.1 (1.5-3.5) 10^3/uL [place] # (Auto) 0.9 (0.0-1.0) 10^3/uL Eos # (Auto) 0.3 (0.0-0.7) 10^3/uL Baso # (Auto) 0.1 (0.0-0.1) 10^3/uL Absolute Nucleated RBC 0.00 x10^3/uL Nucleated RBC % 0.0 /100WBC Sodium 136 (135-145) mmol/L Potassium 3.5 (3.5-5.0) mmol/L Chloride 97 L (101-111) mmol/L Carbon Dioxide 28 (21-32) mmol/L Anion Gap 11.0 (6-13) BUN 11 (6-20) mg/dL Creatinine 0.6 (0.4-1.0) mg/dL Estimated GFR (MDRD) 106 (>89) Glucose 118 H (70-100) mg/dL Calcium 8.9 (8.5-10.3) mg/dL C-Reactive Protein 1.9 H (0-1.0) mg/dL Sepsis Event Note (H) - Evaluation Current Stage of Sepsis: Ruled out Assessment/Plan - Problem List (1) Abscess Impression: wound vac present. erythema improved (2) Cellulitis Qualifiers: Site of cellulitis: extremity Site of cellulitis of extremity: lower extremity Laterality: right Qualified Code(s): L03.115 - Cellulitis of right lower limb
--- NOTE | 2020-12-18 17:57 | PROVIDER PROGRESS NOTE ---
Progress Note December 18, 2020 5 PM She is doing so much better. She is delighted with how much less pain she has. She has many, many, questions for me. 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 She now wants her house almost team cleaned and guided. She ask about keeping her vagina clean and she should be douching. She asked if she should be doing some type of bowel prep. Long conversation on MRSA and what it means and that she does not have to do these extreme measures. She denies chest pain, palpitations, shortness of breath Medications are Tylenol, Elavil, Unasyn, Lovenox, Neurontin, HydroDIURIL, Motrin, Robaxin, morphine as needed, Zofran as needed, oxycodone as needed, Protonix, Florastor. Vitals temperature 36.6, heart rate is 87. Blood pressure 139/65. She is 5 foot 8 inches tall and weighs 154 kg Very pleasant morbidly obese female who looks her stated age. Comfortable, watching TV Neck is supple, unable to assess JVD but no masses palpable Lungs are clear to auscultation and percussion without any respiratory distress Regular rate and rhythm without a murmur rub or gallop Abdomen is obese, soft, hypoactive bowel sounds, unable to assess for organomegaly Both legs are quite large. The right leg, which has the incision and debridement, has a 5 cm x 9 cm sponge underneath the wound VAC. It is an elliptical wound deficit. The surrounding skin has very faint pinkness. She says that that is tremendously improved since she is been here. Blood culture December 13 - Urine culture December 13 with ESBL E. coli December 14 has right leg MRSA wound December 15 staph aureus with sensitivities pending from inside the abscess BMP normal. C-reactive protein went from 8.6 on the -1.9 today White cell count on admission was 22.9. 14.8 today. Assessment/plan Right leg abscess. She describes a blow to her leg with a possible hematoma months ago. It was staying in her leg and suddenly became quite infected. She had an I&D done December 15. White cell count, pain, swelling have improved with the I&D. She now has a wound VAC. Plan is for her to follow-up with her PCP. She will see him next Sunday. The day before she sees her PCP, she has a tentative appointment with the wound clinic for her wound VAC. 2. Anxiety about health. Multiple, multiple questions answered today. Most of the answers were centered around reassuring her that she did not do something wrong, and that MRSA is not something that she needs to "freak out about". I also told her do not be douching her vagina to get rid of MRSA. 3. Hypertension is controlled and stable 4. UTI with ESBL. Patient is asymptomatic. I do not believe we are going to treat this in the outpatient setting. 4. Gastroesophageal reflux disease by history. On as needed GI cocktail and on Protonix and stable symptoms.
[2020-12-18] MEDS: AMITRIPTYLINE 25 MG TABLET PO SCH (21:18)
[2020-12-19] MEDS: methocarbamoL 500 MG TABLET PO PRN ×2 (00:15→08:55)
[2020-12-19] MEDS: GABAPENTIN 100 MG CAPSULE PO SCH ×2 (00:15→08:55)
[2020-12-19] MEDS: SODIUM CHLORIDE FLUSH 0.9% 10 ML SYRINGE IVP SCH ×2 (00:16→12:05)
[2020-12-19] MEDS: AMPICILLIN/SULBACTAM 3 GM in SODIUM CHLORIDE 0.9% MINIBAG 100 ML IV SCH ×3 (00:16→11:31)
[2020-12-19] MEDS: ACETAMINOPHEN 325 MG TABLET PO PRN ×4 (05:05→14:25)
[2020-12-19] MEDS: oxyCODONE 5 MG TABLET PO PRN ×3 (05:06→12:46)
[2020-12-19] MEDS: GABAPENTIN 300 MG CAPSULE PO SCH ×2 (05:06→14:23)
[2020-12-19] MEDS: SODIUM CHLORIDE FLUSH 0.9% 10 ML SYRINGE IVP PRN (05:34)
[2020-12-19] MEDS: PANTOPRAZOLE 40 MG TABLET PO SCH (05:34)
[2020-12-19 06:41] LABS: BASOPHILS % (AUTO) 0.6 %; EOSINOPHILS % (AUTO) 2.6 %; HCT - HEMATOCRIT 39.6 % (37.0-47.0); HGB - HEMOGLOBIN 12.6 g/dL (12.0-16.0); LYMPHOCYTES % (AUTO) 21.1 %; MEAN CORPUSCULAR HEMOGLOBIN 27.2 pg (27.0-31.0); MEAN CORPUSCULAR HGB CONC 31.8 g/dL (32.0-36.0); MEAN CORPUSCULAR VOLUME 85.3 fL (81.0-99.0); MEAN PLATELET VOLUME 9.9 fL (7.9-10.8); MONOCYTES % (AUTO) 5.7 %; NEUTROPHILS % (AUTO) 66.3 %; PLT - PLATELET COUNT 452 10^3/uL (130-450); RED BLOOD COUNT 4.64 10^6/uL (4.20-5.40); RED CELL DISTRIBUTION WIDTH 13.1 % (12.0-15.0); WHITE BLOOD COUNT 15.6 x10^3/uL (4.8-10.8)
[2020-12-19 06:45] LABS: ABNORMAL LYMPHS % (MANUAL) 0 %
[2020-12-19 06:59] LABS: BUN - BLOOD UREA NITROGEN 10 mg/dL (6-20); CALCIUM 9.2 mg/dL (8.5-10.3); CARBON DIOXIDE - CO2 28 mmol/L (21-32); CHLORIDE 99 mmol/L (101-111); CREATININE 0.6 mg/dL (0.4-1.0); GFR - MDRD 106 (>89); GLUCOSE 125 mg/dL (70-100); POTASSIUM 3.7 mmol/L (3.5-5.0); SODIUM 139 mmol/L (135-145)
[2020-12-19 07:19] LABS: CRP - C-REACTIVE PROTEIN < 1.0 mg/dL (0-1.0)
[2020-12-19 08:43] LABS: BAND NEUTROPHILS % (MANUAL) 3 %; EOSINOPHILS # (MANUAL) 0.6 10^3/uL (0-0.7); LYMPHOCYTES # (MANUAL) 4.4 10^3/uL (1.5-3.5); LYMPHOCYTES % (MANUAL) 28 %; METAMYELOCYTES % (MANUAL) 3 %; MONOCYTES # (MANUAL) 0.9 10^3/uL (0.0-1.0); MYELOCYTES % (MANUAL) 1 %
[2020-12-19 08:47] LABS: DIFFERENTIAL COMMENT MANUAL DIFFERENTIAL; PLATELET ESTIMATE, MANUAL INCREASED (>450,000) (NORMAL)
[2020-12-19] MEDS: SACCHAROMYCES BOULARDII 250 MG CAPSULE PO SCH (08:54)
[2020-12-19] MEDS: hydroCHLOROthiazide 25 MG TABLET PO SCH (08:55)
[2020-12-19] MEDS: IBUPROFEN 600 MG TABLET PO PRN ×2 (08:55→14:23)
[2020-12-19] MEDS: ENOXAPARIN 40 MG/0.4 ML SYRINGE SUBQ SCH (08:56)
[2020-12-19 12:11] VITALS: BP 148/78
--- NOTE | 2020-12-19 12:35 | Discharge Plan ---
Discharge Plan Problem Reviewed?: Yes Disposition: Home, Self Care Condition: Stable Prescriptions: oxyCODONE [Roxicodone] 5 mg PO Q4HR PRN #30 tablet PRN Reason: Pain 5 to 7 Sulfamethox/Trimeth 800/160 [Bactrim Ds] 1 tablet PO BID 7 Days #14 tablet Diet: Regular Activity Restrictions: Activity as Tolerated Shower Restrictions: No Driving Restrictions: Yes (no driving while wound vac in place) Health Concerns: You presented to our emergency room with severe right leg pain. It bumped your leg few months ago and has had a bruise since that time. We think that you have an infected hematoma and that developed into an abscess in your right leg with elevated white cell count and severe infection. You underwent an incision and debridement with removal of quite a bit of pus. You now have a wound vacuum to remove fluid. You were under the care of general surgery for that. You responded to antibiotics very well. You are growing out methicillin-resistant staph aureus and will be sent home with oral antibiotics, Bactrim, to cover that. Plan of Treatment: 1. you will be seen in the wound clinic on , December 23. 2. You will be seen by a new primary care provider December 24. 3. The surgeon would like you to take 2 weeks of Bactrim. I have prescribed 1 week. And will change that to 1 week with 1 refill. Side effects of Bactrim can sometimes be a rash. So if he developed a bright red sandpapery rash on your belly, chest, or arms that is very itching. Please let your primary care provider know. 4. When you see your primary care provider have them check a CBC and a C- reactive protein to make sure the inflammation infection is dying down. This is blood work. 5. General surgery feels they do not need to see you anymore. All of your wound care will be turned over to the wound clinic at the medical ambulatory clinic here at [facility]. Care Goals: To have your wound closed and healed. It is a large defect in your leg. This will take weeks to heal. Do not be alarmed at the slow progress. As long as you do not have redness, severe drainage, pain, fever you are heading in the right direction. Assessment: Patient understands care goals and promises to follow through. She states that she gets a lot of help with her 22-year-old son who lives with her. Additional Instructions or Follow Up instructions: We had sent her prescriptions to [facility] which was her identified preferred pharmacy, she realized that [facility] was closed on Sundays. As such I will need to retransmit the prescription to [facility]. Unfortunately the triplicate/opiate prescription cannot be re-transcribed and will have to be picked up at [facility] tomorrow. No Smoking: If you smoke, Please STOP! Call for help. Follow-up with: FLIP BARROSO [Primary Care Provider] -
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
--- NOTE | 2020-12-19 14:16 | PROVIDER PROGRESS NOTE ---
Progress Note Subjective Postoperative day #4 status post right lower extremity incision and drainage, debridement, and washout; likely infected hematoma. Overall much improved. Wound VAC arrived. Continue outpatient therapy. See VAC change elsewhere. Procedure Performed: 1. Right lower extremity incision and drainage 2. Right lower extremity washout 3. Right lower extremity wound VAC placement 4. Evacuation of right lower extremity infected hematoma Objective Afebrile hemodynamically acceptable General Appearance: positive: No acute distress Eyes Bilateral: positive: Normal inspection ENT: positive: ENT inspection nml Neck: positive: Nml inspection Respiratory: positive: Chest non-tender, No respiratory distress, Breath sounds nml. negative: Wheezes, Rales, Rhonchi Cardiovascular: positive: Regular rate & rhythm Abdomen: positive: No distention, Other. negative: Guarding, Rebound Extremities: positive: Non-tender, Full ROM, Nml appearance Neurologic/Psychiatric: positive: Oriented x3, CN's nml (2-12) Pulses: Femoral Popliteal Dorsal Ped Post Tibial Right Pos/Palp Pos/Palp Pos/Palp Pos/Palp Left Pos/Palp Pos/Palp Pos/Palp Pos/Palp Impression/Plan Postop day #4 status post above listed procedures. Status post VAC change. Continue antibiotic coverage for MRSA; agree with 2 weeks of Bactrim. Outpatient [facility] clinic wound VAC change in management. Will need to be seen by general surgery in the next 2 weeks. Advised to return for any fever sweats chills, nausea vomiting, or other worrisome symptoms or features. Please note that voice recognition software was used to transcribe this note and inadvertent errors might persist in spite of review and editing. I am obliged to you for your attention. I am thankful to you for allowing me to participate with you in this care of this patient.
--- NOTE | 2020-12-19 14:44 | OPERATIVE REPORT ---
Operative Report - General Admit Date: 12/15/20 Procedure Date: 12/19/20 Planned Procedure: 1. Right lower extremity washout 2. Right lower extremity wound VAC placement Pre-Op Diagnosis: Hx of infected hematoma; S/P below listed procedures Procedure Performed: 1. Right lower extremity washout 2. Right lower extremity wound VAC placement Post Op Diagnosis: Same; wound progressing well - Procedure Note Primary Surgeon: Landon Secondary Surgeon: og Anesthesia Provider: none Pathology: NONE Estimated Blood Loss (mL): 3 Drain/Tube Type: Other (Wound Vac with ONLY TWO (2) SPONGES IN THE WOUND) Indications: 50-year-old female morbidly obese status post below listed procedures who necessitates wound VAC change in anticipation of outpatient care and continue therapy Previous Procedure Performed: 1. Right lower extremity incision and drainage 2. Right lower extremity washout 3. Right lower extremity wound VAC placement 4. Evacuation of right lower extremity infected hematoma Findings: see below Complications: NONE - Other Other Information/Narrative: Timeout was called and agreed to by all in the room. Verbal informed consent was obtained. Dressing was removed without complication. Patient was already on scheduled antibiotics. Wound dimensions were as follows: 1. 10 cm craniocaudal skin opening 2. Tracking 13 cm to deepest medial aspect of lower compartment 3. Craniocaudal at depth of medial aspect of lower compartment wound 6 cm 4. Width approximately 5 cm of depth of medial aspect of lower wound 5. Approximately 6 cm wide at skin incision; superior lateral to the deep medial lower compartment 6. Superficial aspect wound tapers approximately 5 to 6 cm before communicating with the medial aspect The cavity superficially tapered towards the tibia with no exposed bone or muscle, however there was a deeper compartment that tracked total of 13 cm from the surface of the skin with other dimensions listed above. There were no other areas of palpable fluctuance or infectious etiology noted. Entire wound was irrigated with nearly 2 L of sterile saline. No stigmata of active persistent infection. We proceeded to place 2 (TWO) pieces of black sponge to accommodate this area. With 2 pieces of black sponge inserted, the clear dressing was placed atop and the suction button was installed. Patient tolerated well for which is no complication. The wound VAC was set to - 125 mmHg to the portable VAC which was charged. Plan going forward would be as follows: 1. Continue oral regimen of antibiotics for two weeks 2. Continue local wound therapy with negative pressure dressing 3. Outpatient follow-up 4. Weight loss encouraged Please note that voice recognition software was used to transcribe this note and inadvertent errors might persist in spite of review and editing. I am obliged to you for your attention. I am thankful to you for allowing me to participate with you in this care of this patient.
== END 2020-12-19 17:00 | disposition home or self-care (01) | DRG 571 ==
LOC: ED 20:04 → MS2 21:39 → OBSVTOIN 12-15 13:26
PROVIDERS: ADMIT Family Medicine Sports Medicine; ATTEND Specialist
PROC: 0JBN0ZZ Excision of Right Lower Leg Subcutaneous Tissue and Fascia, Open Approach (ICD-10-PCS; principal; 2020-12-15 17:00)
DX: L02.415 Cutaneous abscess of right lower limb (principal); N39.0 Urinary tract infection, site not specified; Z68.43 Body mass index [BMI] 50.0-59.9, adult; E66.01 Morbid (severe) obesity due to excess calories; B95.62 Methicillin resistant Staphylococcus aureus infection as the cause of diseases classified elsewhere; L03.115 Cellulitis of right lower limb; F41.9 Anxiety disorder, unspecified; E87.6 Hypokalemia; I10 Essential (primary) hypertension; B96.20 Unspecified Escherichia coli [E. coli] as the cause of diseases classified elsewhere; K21.9 Gastro-esophageal reflux disease without esophagitis; G89.4 Chronic pain syndrome; M79.7 Fibromyalgia; M06.9 Rheumatoid arthritis, unspecified; M48.00 Spinal stenosis, site unspecified; M47.9 Spondylosis, unspecified; Z20.822 Contact with and (suspected) exposure to COVID-19; Z79.899 Other long term (current) drug therapy; X58.XXXA Exposure to other specified factors, initial encounter
CPT/HCPCS: 0202U; 36415; 80048; 80053; 80202; 81001; 81003; 83605; 83690; 84703; 85025; 85027; 85610; 85730; 86140; 87040; 87070; 87075; 87086; 87181; 87205; 87640; 96365; 96366; 96367; 96368; 96375; 96376; 99284

== ENCOUNTER 2021-01-27 20:01 | Emergency (ER) | payer MEDICAID ==
[2021-01-27 20:18] VITALS: BP 137/94
--- NOTE | 2021-01-27 21:11 | ED Physician Documentation ---
History of Present Illness - Stated complaint Stated Complaint: RT REDDING PX S/P DEBRIDEMENT - Chief complaint Chief Complaint: Ext Problem - Additonal information Additional information: 50-year-old female presents the emergency department for severe pain in her right redding. She has a history of an unstageable ulcer that was previously being treated by the [facility] with a VAC dressing in place. However the VAC stopped working. She did go to clinic today and had sharp debridement with a knife. She does have a Mepilex dressing in place over it. Patient typically receives 84 hydrocodone tablets each month from Dr. Ricardo her PCP. She has not had any tablets since Sunday and given the weekend she was unable to get him to refill the prescription for her pain which is now worse after sharp debridement. 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: Ovarian cysts Musculoskeletal: Fibromyalgia - Past Surgical History Past Surgical History: Yes /PRODUCTION LINE SOLDERER: section - Present Medications Home Medications: Ambulatory Orders Medication Instructions Recorded Confirmed Amitriptyline HCl 100 mg PO QPM 12/14/20 12/30/20 Gabapentin [Neurontin] 600 mg PO BID 12/14/20 12/30/20 Gabapentin [Neurontin] 800 mg PO BID 12/14/20 12/30/20 hydroCHLOROthiazide [Hydrodiuril] 25 mg PO DAILY 12/14/20 12/30/20 methocarbamoL [Robaxin] 500 mg PO Q6H PRN 12/14/20 12/30/20 oxyCODONE [Roxicodone] 5 mg PO Q4HR PRN #30 tablet 12/19/20 12/30/20 Fluconazole [Diflucan] 1 tablet PO ONCE 1 Days #1 tablet 01/04/21 HYDROcod/ACETAM 5/325 [Windham 5/325] 1 tablet PO TID #15 tablet 01/27/21 - Allergies Allergies/Adverse Reactions: Allergies Allergy/AdvReac Type Severity Reaction Status Date / Time Penicillins AdvReac Nausea Verified 01/27/21 20:13 - Social History Does the pt smoke?: Yes Smoking Status: Never smoker Does the pt drink ETOH?: No Does the pt have substance abuse?: No - Immunizations Immunizations are current?: Yes - POLST Patient has POLST: No PD ED PE EXPANDED - General General: Alert, No acute distress - Cardiac Cardiac: Regular Rate, Radial strong equal, Pedal strong equal, Cap refill < 2 sec - Respiratory Respiratory: Clear to ausultation demi. No: Distress, Labored - Derm Derm: Other (Mepilex dressing in place over the wound on the right redding. Unable to assess wound base.) Results - Vitals Vitals: Vital Signs - 24 hr 01/27/21 20:13 Temperature 36.7 C Heart Rate 100 Respiratory 16 Rate Blood Pressure 137/94 H O2 Saturation 98 Oxygen O2 Source Room air PD MEDICAL DECISION MAKING - ED course Complexity details: reviewed results, considered differential, d/w patient ED course: 50-year-old female here requesting some pain control for this sharp debridement of her right redding that occurred today over the holiday . The [facility] clinic told her her primary care provider would prescribe it but he is out until Sunday. Therefore she presents here. I have reviewed the narcotic PDMP and feel that a small dose of hydrocodone over the weekend is appropriate given the history. I will prescribe 15 tablets. She is encouraged to follow-up with her PCP for further narcotic refills. She was made aware that we would not be able to refill this in the future. Departure - Departure Disposition: 01 Home, Self Care Clinical Impression: Pain Ulcer of right redding Qualifiers: Non-pressure ulcer stage: unspecified non-pressure ulcer stage Qualified Code(s): L97.819 - Non-pressure chronic ulcer of other part of right lower leg with unspecified severity Condition: Stable Record reviewed to determine appropriate education?: Yes Follow-Up: FLIP BARROSO [Primary Care Provider] - Prescriptions: HYDROcod/ACETAM 5/325 [Windham 5/325] 1 tablet PO TID #15 tablet Comments: Davina I have sent 15 hydrocodone tablets to the [facility] pharmacy. The emergency department cannot refill this again in the future. It is very important that you see your primary care provider on Sunday or Sunday in order to have this refilled. Please take the antibiotics as already prescribed. Return to the emergency department for any fevers that are worsening, significant redness outside of your bandage or uncontrolled vomiting or chest pain. I am prescribing a short course of narcotic pain medication for you. These are potentially dangerous and addictive medications that should be used carefully. These medications may constipate you. Take an [id number]-zga-saddcaw stool softener (docusate) twice daily with plenty of water while taking these medications. If you go 24 hours without a bowel movement, take [id number] miralax, per package instructions. Do not drink or drive while taking these medications. If you received narcotic or sedating medications while in the [facility], do not drive for 24 hours. Store this medication in a safe, secure place and out of reach of children. It is a violation of federal law to give or sell this medication to another person or to use in a manner other than prescribed. The ED will not refill narcotic prescriptions, including prescriptions lost or stolen. To dispose of unwanted medications: 1. [facility] at [address] in [place] has a medication drop box. They accept prescription medications (in pill form) Sunday through Sunday 9:00 a.m. to 5:00 p.m. 2. The [facility] accepts prescription medications (in pill form only) for disposal year round. Call for more information. 3. Contact the [facility] for the next [facility] sponsored prescription drug collection event. , [phone], or [phone]; Note that many narcotic pain relievers also contain Tylenol/acetaminophen. Please ensure that your total dose of acetaminophen from all sources does not exceed 3 g (3000 mg) per day.
[2021-01-27] MEDS ORDERED: oxyCODONE 5 MG TABLET PO STA (21:15)
== END 2021-01-27 21:25 | disposition home or self-care (01) ==
LOC: ED 20:01
DX: L97.819 Non-pressure chronic ulcer of other part of right lower leg with unspecified severity (principal); I10 Essential (primary) hypertension
CPT/HCPCS: 99282; 99283; A9270

== ENCOUNTER 2022-02-07 21:00 | Emergency (ER) | payer MEDICAID ==
[2022-02-07] MEDS ORDERED: KETOROLAC 30 MG/ML VIAL IM STA (22:46)
[2022-02-07] MEDS ORDERED: oxyCODONE 5 MG TABLET PO STA (22:47)
--- NOTE | 2022-02-07 22:50 | ED Physician Documentation ---
History of Present Illness - Stated complaint Stated Complaint: RT HIP TO KNEE PAIN - Chief complaint Chief Complaint: Ext Problem - History obtained from History obtained from: Patient - Additonal information Additional information: 51-year-old woman with past medical history of chronic right hip and knee pain presents with pain over the past 2 months and inability to sleep at night. Denies fever, swelling, numbness, weakness. 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: Ovarian cysts Musculoskeletal: Fibromyalgia - Past Surgical History Past Surgical History: Yes /DEMAND PLANNER: section HEENT: Other - Present Medications Home Medications: Ambulatory Orders Medication Instructions Recorded Confirmed Amitriptyline HCl 100 mg PO QPM 12/14/20 04/08/21 Gabapentin [Neurontin] 600 mg PO BID 12/14/20 04/08/21 hydroCHLOROthiazide [Hydrodiuril] 25 mg PO DAILY 12/14/20 04/08/21 methocarbamoL [Robaxin] 500 mg PO Q6H PRN 12/14/20 04/08/21 HYDROcod/ACETAM 5/325 [Childs 5/325] 1 tablet PO TID #15 tablet 01/27/21 04/08/21 Ascorbic Acid/Elderberry Fruit 1 each PO DAILY 04/08/21 04/08/21 [Elderberry-Vit C 50-100 mg Chw] Cholecalciferol [Vitamin D3] 5,000 unit PO DAILY 04/08/21 04/08/21 Ketorolac [Toradol] 10 mg PO Q6H PRN #30 tablet 02/07/22 - Allergies Allergies/Adverse Reactions: Allergies Allergy/AdvReac Type Severity Reaction Status Date / Time Penicillins AdvReac Nausea Verified 02/07/22 21:12 - Social History Does the pt smoke?: Yes Smoking Status: Never smoker Does the pt drink ETOH?: No Does the pt have substance abuse?: No - Immunizations Immunizations are current?: Yes - POLST Patient has POLST: No PD ED PE NORMAL - Vitals Vital signs reviewed: Yes - General General: Alert and oriented X 3, No acute distress, Well developed/nourished - HEENT HEENT: Atraumatic, PERRL, EOMI - Back Back: No spinal TTP - Derm Derm: Normal color, Warm and dry - Extremities Extremities: No deformity, Other (from of right hip and knee, with discomfort. 2+ BL DP pulses. normal sensation and movement) - Neuro Neuro: No motor deficit, No sensory deficit - Psych Psych: Normal mood, Normal affect Results - Vitals Vitals: Vital Signs - 24 hr 02/07/22 21:07 Temperature 36.5 C Heart Rate 117 H Respiratory 18 Rate Blood Pressure 162/92 H O2 Saturation 100 Oxygen O2 Source Room air PD MEDICAL DECISION MAKING - ED course ED course: 51-year-old woman with chronic pain presents with 2 months of right hip pain radiating to the knee. denies urinary/fecal incontinence, numbness, weakness. Provided analgesia in the emergency department and return precautions. Referral given for primary doctor. Departure - Departure Disposition: 01 Home, Self Care Clinical Impression: Pain in extremity Condition: Stable Instructions: ED Chronic Pain Management Follow-Up: Maria C Nicholson PA-C [Provider Admit Priv/Credential] - Prescriptions: Ketorolac [Toradol] 10 mg PO Q6H PRN #30 tablet PRN Reason: Pain Comments: You are seen in the emergency department for evaluation of chronic right hip and leg pain. He received oxycodone and Toradol in the emergency department and a prescription for Toradol. Please follow-up with TAMIKA Nicholson for further eval and referral to physical therapy, osteotherapy and pain management. Return to the emergency department if you have any new or worsening symptoms or other concerns
[2022-02-07 23:12] VITALS: BP 150/89
== END 2022-02-07 23:11 | disposition home or self-care (01) ==
LOC: ED 21:00
DX: M25.551 Pain in right hip (principal); M25.561 Pain in right knee; G89.29 Other chronic pain
CPT/HCPCS: 96372; 99281; 99283; A9270